=== PATIENT | male | born 1980 | race Caucasian/White ===

== ENCOUNTER 2022-12-18 16:23 | Inpatient (IN) | payer OTHER, SELFPAY ==
--- NOTE | ~2022-12-18 | CT_ITS ---
EXAMINATION: CT LE RT wo con DATE: 12/20/2022 14:57 INDICATION: Right lower leg cellulitis. TECHNIQUE: High resolution computed tomography (CT) of the right lower leg was performed without intr avenous contrast. Additional sagittal and coronal reconstructions were performed. Automated exposure control and iterative reconstruction technique were employed. The dose-length product was 1166.62 mGy -cm. COMPARISON: None FINDINGS: Bone alignment is normal. No fracture. 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 No cortical erosions or periosteal reaction to suggest osteom yelitis. No right knee or ankle joint effusions. There is diffuse subcutaneous edema seen on the ceph alad-most images at the distal right thigh becoming progressively more severe in the more distal lowe r leg and extending into the foot. There is a 6.4 x 3.1 x 1.7 cm lenticular blisterlike subepidermal fluid collection at the distal dorsum of the foot which remain superficial to the subcutaneous fat. N o other loculated fluid collections to suggest abscess. No evident soft tissue gas. IMPRESSION: 1. Extensive distal predominance subcutaneous edema throughout the right lower leg, foot and ankle wi th 6.4 x 3.1 x 1.7 cm superficial subdermal blisterlike fluid collection at the dorsum of the foot. N o other likely fluid collections to suggest abscess. Reviewed, dictated and finalized at location A. TER HELPER IMPRESSION: 1. Extensive distal predominance subcutaneous edema throughout the right lower leg, foot and ankle with 6.4 x 3.1 x 1.7 cm superficial subdermal blisterlike f luid collection at the dorsum of the foot. No other likely fluid collections to suggest abscess.
--- NOTE | ~2022-12-18 | US_ITS ---
Renal-Bladder ultrasound Clinical History: Acute renal insufficiency Technique: Real-time sonographic imaging of the kidneys and urinary bladder was performed. Findings: The right kidney measures 12.2 cm in length and the left kidney measures 13.3 cm. There is no hydronephrosis or renal calculus identified. Renal cortical echogenicity is within normal limits. No renal mass lesion is identified. The urinary bladder is moderately distended at the time of this exam. No intraluminal echoes are iden tified. No abnormal wall thickening is seen. Impression: Unremarkable ultrasound of the kidneys and urinary bladder. Reviewed, dictated and finalized at location M. STRIPPER Impression: Unremarkable ultrasound of the kidneys and urinary bladder.
--- NOTE | ~2022-12-18 | XR_ITS ---
Portable chest x-ray Comparison: 10/13/2018 Clinical History: Wheezing, cough Findings: Lungs are clear, without focal consolidation or pleural effusion. Cardiomediastinal silho uette is stable. Bones and soft tissues are unremarkable. Impression: Clear lungs. Reviewed, dictated and finalized at [facility]. MOLDER Impression: Clear lungs.
--- NOTE | ~2022-12-18 | US_ITS ---
EXAMINATION: US_VDOPREFRT_US DATE: 12/25/2022 16:23 INDICATION: Right lower limb edema. TECHNIQUE: Grayscale ultrasound images without and with compression and Doppler ultrasound images of the right lower extremity veins were obtained. COMPARISON: None. FINDINGS: The visualized portions of right common femoral vein, profunda (deep) femoral vein, femoral vein, pop liteal vein, peroneal veins, and posterior tibial veins are patent. Right greater saphenous vein xochitl ures 8 mm in the upper thigh and 5 mm in the lower thigh. There is reflux in right greater saphenous vein measuring 1.2 seconds in the lower thigh. The right lesser saphenous vein measures 7 mm in the upper calf with 0.7 seconds reflux. There is extensive subcutaneous edema. IMPRESSION: 1. No deep venous thrombosis. 2. Reflux in right greater and lesser saphenous veins. Reviewed, dictated and finalized at location A. STMENT ASSOCIATE
--- NOTE | ~2022-12-18 | US_ITS ---
EXAMINATION: US venous doppler LE RT DATE: 12/18/2022 21:35 INDICATION: Right lower limb pain, swelling and erythema. TECHNIQUE: Grayscale ultrasound images without and with compression and Doppler ultrasound images of the right lower extremity veins were obtained. COMPARISON: None. FINDINGS: The visualized portions of right common femoral vein, profunda (deep) femoral vein, femoral vein, pop liteal vein, peroneal trunk, posterior tibial veins, peroneal veins, gastrocnemius vein and greater s aphenous vein outflow are patent. IMPRESSION: 1. No deep venous thrombosis in the right lower limb. Reviewed, dictated and finalized at location A. SPRING REPAIRER HELPER
--- NOTE | ~2022-12-18 | US_ITS ---
EXAMINATION: US arterial ankle brachial ind DATE: 12/25/2022 16:23 INDICATION: Right lower limb edema. TECHNIQUE: Segmental pressures and plethysmographic and Doppler waveforms of the brachial and lower e xtremity arteries were obtained. COMPARISON: CT 12/20/22 FINDINGS: Right and left brachial artery pressures of 131 mm Hg and 147 mm Hg, respectively, are concordant (no rmal difference <= 30 mmHg). The right ankle-brachial index (AMANDA) could not be measured (normal >= 0.9-1.0). The right great toe-b rachial index (TBI) is 0.70 (normal >= 0.65). Arterial Doppler waveforms are not well detected at the ankle. The left AMANDA is 0.95. The left TBI is 0.95. Arterial Doppler waveforms are biphasic at the ankle. IMPRESSION: 1. Right AMANDA could not be measured due to the poor detectability of the arterial signals. 2. Normal right TBI. 3. Borderline decreased left AMANDA and normal left TBI. Reviewed, dictated and finalized at location A. VIORAL SCIENCES INSTRUCTOR IMPRESSION: 1. Right AMANDA could not be measured due to the poor detectability of the arteria l signals. 2. Normal right TBI. 3. Borderline decreased left AMANDA and normal left TBI.
[2022-12-18 16:25] VITALS: BP 96/56; PULSE 91; RESP 17; TEMP 36.2; O2SAT 99
--- NOTE | 2022-12-18 19:40 | PC.NURSE ---
Patient states he cannot sit in the chair anymore and will go to urgent care tomorrow.
--- NOTE | 2022-12-18 19:58 | ED.EXTPRO ---
HPI - Extremity Problem General Chief complaint: Extremity Problem,Nontraumatic Stated complaint: right leg swollen and hot Time Seen by Provider: 12/18/22 19:51 History of Present Illness HPI Narrative: This is a 42-year-old male with past medical history of diabetes who presents for chief complaint of right leg swelling and pain. This began 2 days ago. Reports pain is limited to the right lower leg. Endorses erythema and warmth. Reports an open wound to the martinez 2 weeks ago. Able to weight-bear but this causes significant pain. While lying down he states the pain is a 5 out of 10. Reports the area is very tender to touch. Reports low-grade fevers at 99F. States he has been out of his glimepiride for about a week. Last blood glucose check was today around noon and recorded at 250. Denies chills, nausea, vomiting, Chest pain, shortness of breath, syncope, weakness. Related Data Home Medications Medication Instructions Recorded Confirmed glimepiride 2 mg tablet (Amaryl) mg 09/23/19 metformin 500 mg tablet mg 09/23/19 Allergies Allergy/AdvReac Type Severity Reaction Status Date / Time aspirin Allergy Unknown Verified 10/13/18 02:47 Review of Systems Review of Systems: CONSTITUTIONAL: Denies fever, chills, or sweats. EYES: Denies visual changes, redness, or discharge. ENT: Denies rhinorrhea, congestion, sore throat, or otalgia. CARDIOVASCULAR: Denies chest pain, palpitations, or edema. RESPIRATORY: Denies cough or dyspnea. GASTROINTESTINAL: Denies abdominal pain, nausea, vomiting, or diarrhea. GENITOURINARY: Denies dysuria or hematuria. SKIN: Endorses erythema and warmth of the right lower leg. Reports lesions to the right lower leg. Denies rash or itching. MUSCULOSKELETAL: Endorses right calf pain. Denies back pain, joint pain, or myalgia. NEUROLOGIC: Denies headache, numbness, dizziness, or weakness. PSYCHIATRIC: Denies anxiety or depression. Exam Narrative: GENERAL: Well-appearing, well-nourished, and in no acute distress. HEAD: Normocephalic, atraumatic. EYES: PERRLA and EOMI. ENT: Nares clear, no rhinorrhea or epistaxis. Mucous membranes moist. Oropharynx without tonsillar hypertrophy exudate or other lesions. NECK: Supple. No adenopathy or masses. CHEST: No respiratory distress. Scattered wheezes are present. No rales or rhonchi HEART: Regular rate and rhythm. No murmur heard. Normal peripheral pulses. ABDOMEN: Soft, nontender, nondistended, normal active bowel sounds. EXTREMITIES: Normal range of motion. Right lower leg 1+ edema up to the level of the knee. 2+pulses bilaterally SKIN: Erythematous and warm right lower leg. 1 closed wound is noted to the right anterior martinez. Two open wounds noted to the lateral and posterior calf. The first is 1 cm in diameter. The second is linear and 3 cm in length with surrounding ecchymosis. Wounds are weeping. another area of ecchymosis is noted to the dorsum of the right foot. NEURO: Alert and oriented x3. No focal deficits. PSYCH: Normal mood and affect. Course Course Emergency Course: 2223: Spoke to Dr. Calix (hospitalist) and she agrees to admit the patient to [facility]. Vital Signs Vital signs: Vital Signs Temperature 97.2 F L 12/18/22 16:25 Pulse Rate 91 12/18/22 16:25 Respiratory Rate 17 12/18/22 16:25 Blood Pressure 96/56 L 12/18/22 16:25 Pulse Oximetry 99 12/18/22 16:25 Temperature 97.2 F L 12/18/22 16:25 Pulse Rate 91 12/18/22 20:30 Respiratory Rate 20 12/18/22 20:30 Blood Pressure 115/56 L 12/18/22 20:30 Pulse Oximetry 95 12/18/22 20:30 MDM - Extremity (Nontraumatic) MDM Narrative Medical decision making narrative: This is a 42-year-old male who comes in with chief complaint of right lower extremity pain, redness and swelling x2 days. Exam is remarkable for swollen right calf that is erythematous and warm to touch. Patient is a diabetic and has been out of his glimepiride for about a week. Obtained
--- NOTE | 2022-12-18 20:20 | PC.NURSE ---
Pt brought to ED by his s/o with c/o right lower leg swelling that started Sunday. There are multiple open spots that are draining clear fluid. 4+ pitting edema noted. He denies history of CHF. He denies chest pain or SOB. He does have a history of diabetes but has been out of his medications for 1 week+. States his sugars have been running 200-250s. Denies known fevers.
[2022-12-18 20:22] LABS: Basophils Absolute Auto 0.1 K/mm3 (0.0-0.1); Basophils Percent Auto 0.4 % (0.2-1.2); Eosinophils Absolute Auto 0.1 K/mm3 (0-0.3); Eosinophils Percent Auto 0.3 % (0-4.4); Hematocrit 40.8 % (42.0-52.0); Hemoglobin 14.2 g/dL (14.0-18.0); Immature Granulocyte Absolute 0.23 K/mm3 (0.00-0.031); Lymphocytes Absolute Auto 0.65 K/mm3 (0.9-3.2); Lymphocytes Percent Auto 2.8 % (18.3-44.2); Mean Corpuscular HGB Conc 34.8 g/dl (32-36); Mean Corpuscular Hemoglobin 32.7 pg (26-34); Mean Platelet Volume 11.2 fl (7.4-10.4); Monocytes Absolute Auto 0.7 K/mm3 (0.1-0.6); Monocytes Percent Auto 3.1 % (2.6-8.5); Neutrophils Absolute Auto 21.6 K/mm3 (1.3-6.7); Neutrophils Percent Auto 92.4 % (45.5-73.1); Platelet Count Result 181 k/mm3 (150-375); Red Blood Count 4.34 M/mm3 (4.6-6.20); Red Cell Distribution Width 13.5 % (11.5-14.5); White Blood Count 23.4 K/mm3 (4.5-10.0)
[2022-12-18 20:30] VITALS: BP 115/56; PULSE 91; RESP 20; O2SAT 95
[2022-12-18] MEDS: MORPHINE SULFATE (*CRX) 4 MG/ML INJ IV PUSH ×2 (20:44→22:49)
[2022-12-18] MEDS: SODIUM CHLORIDE 0.9% IV 500 ML 999 ML IV CONT (20:44)
[2022-12-18] MEDS: ONDANSETRON INJ 4 MG/2 ML VIAL IV PUSH (20:44)
[2022-12-18 20:45] LABS: Alanine Aminotransferase 49 U/L (6-50); Albumin Level 3.7 g/dL (3.5-5.1); Alkaline Phosphatase 171 U/L (38-126); Anion Gap 10 mmol/L (8-16); Aspartate Amino Transferase 48 U/L (17-59); Bilirubin,Total 1.4 mg/dL (0.2-1.3); Blood Urea Nitrogen 41 mg/dL (9-20); Calcium 8.3 mg/dL (8.4-10.2); Carbon Dioxide 24 mmol/L (22-30); Chloride 90 mmol/L (98-107); Estimated CRCL calculation 54 ml/min; Estimated Glomerular Filt Rate 28; Glucose 242 mg/dL (65-110); Potassium 4.1 mmol/L (3.4-5.0); Sodium 124 mmol/L (137-145)
[2022-12-18 20:59] LABS: Erythrocyte Sedimentation Rate 51 mm/hr (0-20)
[2022-12-18 21:35] LABS: Fractional Inspired Oxygen 21 %; HCO3 VBG 20.1 mEq/l (24.0-30.0); PO2 VBG 91.6 mmHg (35.0-45.0)
[2022-12-18 21:40] LABS: PCO2 VBG 26.9 mmHg (42.0-48.0); pH VBG 7.491 (7.300-7.400)
[2022-12-18] MEDS: metroNIDAZOLE 500 MG/ISO 100ML 500 MG/100 ML BAG 100 MG IVPB (21:40)
[2022-12-18] MEDS: SODIUM CHLORIDE 0.9% IV 1,000 ML 999 ML IV CONT (21:41)
[2022-12-18 21:50] LABS: Beta-Hydroxybutyrate/Acetoacetate 0.79 mmol/L (0.02-0.27)
[2022-12-18 22:03] LABS: Influenza A QL RT-PCR Negative (Negative); Influenza B QL RT-PCR Negative (Negative); RSV RNA, RT-PCR Negative (Negative); SARS-CoV-2 RNA PCR Negative
--- NOTE | 2022-12-18 22:20 | PM.IMHP ---
H&P: HPI History of Present Illness Date/Time: 12/18/22 22:20 Chief Complaint: Right lower extremity redness Narrative: This is a 42-year-old male with past medical history significant for type 2 diabetes mellitus, morbid obesity, tobacco dependence, patient presents to the emergency room due to right lower extremity redness, warmth, tenderness for the last 3 days or so, generalized malaise, chills, rigors, poor appetite. Patient denies any cough, sputum production, shortness of breath, no nausea, no vomiting, no diarrhea, no abdominal pain. Preliminary workup was significant for white count of 20,000, creatinine of 2.5, a venous Doppler showed no acute DVT of the right lower extremity, sodium 124, glucose 305., total bili was 1.4. Beta hydroxybutyrate was 0.79. Patient is been admitted for further evaluation management and treatment. Review of Systems Review of Systems: Right lower extremity swelling, tenderness, warmth, redness. Constitutional: Constitutional: Reports chills, Reports fatigue, Reports fever(s), Reports lethargy, Reports malaise, Reports night sweats, Reports poor appetite and Reports weakness Eyes: Eyes: Denies change in vision ENT: Denies dysphagia, Denies vertigo, Denies dizziness and Denies odynophagia Respiratory: Respiratory: Denies chest congestion, Denies excessive phlegm production, Denies pain on inspiration, Denies dyspnea and Denies dyspnea on exertion Gastrointestinal: Gastrointestinal: Denies abdominal pain, Denies dyspepsia, Denies heartburn, Denies diarrhea, Denies nausea and Denies vomiting Genitourinary: Genitourinary: Denies dysuria and Denies flank pain Musculoskeletal: Musculoskeletal: Reports other (Right lower extremity redness warmth tenderness swelling) Integumentary/Breasts: Skin/Breast: Reports swelling, Reports erythema, Reports rash, Reports skin pain and Reports skin swelling Comments: Right lower extremity Neurologic: Denies focal weakness and Denies Sensory deficit (Neuro) Psychiatric: Psychiatric: Reports no additional psychiatric complaints and Reports as per HPI Endocrine: Endocrine: Denies cold intolerance, Denies flushing, Denies heat intolerance, Denies polyphagia, Denies polydipsia and Denies palpitations Hematologic/Lymphatic: Hematologic/Lymphatic: Reports no additional hematologic/lymphatic complaints and Reports as per HPI Allergic/Immunologic: Allergic/Immunologic: Reports no additional allergic/immunologic complaints and Reports as per HPI [facility] Family History Family History (Updated 12/18/22 @ 23:43 by Raisa Aguilera RN) Mother Asthma Chronic obstructive pulmonary disease Diabetes mellitus Grandparent Colon cancer Social History Social History Smoking packs per day: 1 Smoking cigarettes per day: 20.0 Smoking status: Current every day smoker Tobacco type: cigarettes Alcohol intake: never Substance use: never Lack of Transportation: No Lack of Food: Never True Current Housing: I Have Housing Concerned About Future Housing: No Difficulty Paying Gas/Electric Bills: No Difficulty Paying for Meds: No Currently Unemployed: No Education: Associate Degree Difficulty w/ Childcare or Family Care: No Spiritual care concerns: No Meds Home Medications and Allergies Home Medications Medication Instructions Recorded Confirmed Type glimepiride 2 mg tablet (Amaryl) 8 mg PO BID 09/23/19 12/18/22 History Allergies Allergy/AdvReac Type Severity Reaction Status Date / Time aspirin Allergy Unknown Verified 10/13/18 02:47 Vital Signs Vital Signs - 24 hr 12/18/22 16:25 12/18/22 20:30 Temperature 97.2 F L Pulse Rate 91 91 Respiratory Rate 17 20 Blood Pressure 96/56 L 115/56 L Pulse Oximetry 99 95 Exam Narrative: Patient is laying in a stretcher Const: General: cooperative, comfortable, no acute distress, well developed, alert, awake, ill dee
[2022-12-18 22:36] LABS: Glucose Point of Care 236 mg/dl (65-105)
[2022-12-18 22:57] LABS: CRP > 45.0 mg/dL (<1.0)
[2022-12-18 22:58] VITALS: BP 126/52; PULSE 77; RESP 26; O2SAT 96
[2022-12-18 23:40] VITALS: BP 116/63; PULSE 95; RESP 28
--- NOTE | 2022-12-18 23:41 | ADMGEN ---
This patient, Jose Antonio Winter, was admitted to Medical Room 349-01. Patient/family oriented to hospital policies and general routines including ID bracelet, bed and alarms, visiting hours, pain management, procedures, bathroom and other care routines, personal items, smoking policy, room service/diet, and visiting hours. Information on how to activate the Rapid Response Team has been discussed. Patient/Family are encouraged to report perceived risks to care and to ask questions if they do not understand what they are told or what they should do.
[2022-12-18 23:42] VITALS: BMI 49.4
[2022-12-19] MEDS: metroNIDAZOLE 500 MG/ISO 100ML 500 MG/100 ML BAG 100 MG IVPB ×3 (05:24→21:04)
[2022-12-19] MEDS: SODIUM CHLORIDE 0.9% IV 1,000 ML 100 ML IV CONT ×3 (05:24→21:03)
[2022-12-19 05:53] LABS: Basophils Absolute Auto 0.1 K/mm3 (0.0-0.1); Basophils Percent Auto 0.5 % (0.2-1.2); Eosinophils Percent Auto 0.1 % (0-4.4); Hematocrit 37.1 % (42.0-52.0); Hemoglobin 12.8 g/dL (14.0-18.0); Immature Granulocyte Absolute 0.28 K/mm3 (0.00-0.031); Immature Granulocyte Percent A 1.2 % (0-0.5); Lymphocytes Percent Auto 2.6 % (18.3-44.2); Mean Corpuscular HGB Conc 34.5 g/dl (32-36); Mean Corpuscular Hemoglobin 32.7 pg (26-34); Mean Corpuscular Volume 94.9 fl (80-100); Mean Platelet Volume 10.9 fl (7.4-10.4); Monocytes Percent Auto 4.5 % (2.6-8.5); Neutrophils Absolute Auto 20.9 K/mm3 (1.3-6.7); Neutrophils Percent Auto 91.1 % (45.5-73.1); Platelet Count Result 164 k/mm3 (150-375); Red Blood Count 3.91 M/mm3 (4.6-6.20); Red Cell Distribution Width 13.5 % (11.5-14.5); White Blood Count 22.9 K/mm3 (4.5-10.0)
[2022-12-19 06:00] VITALS: BP 114/60; PULSE 95; RESP 24; TEMP 37.2
[2022-12-19 06:14] LABS: Anion Gap 10 mmol/L (8-16); Blood Urea Nitrogen 41 mg/dL (9-20); Calcium 7.7 mg/dL (8.4-10.2); Carbon Dioxide 21 mmol/L (22-30); Chloride 91 mmol/L (98-107); Estimated CRCL calculation 50 ml/min; Estimated Glomerular Filt Rate 26; Glucose 229 mg/dL (65-110); Potassium 3.7 mmol/L (3.4-5.0); Sodium 122 mmol/L (137-145)
[2022-12-19 08:39] LABS: Glucose Point of Care 220 mg/dl (65-105)
[2022-12-19] MEDS: INSULIN ASPART (*BKC) 100 UNITS/ML 8 UNITS SUB-Q ×3 (10:02→17:34)
[2022-12-19] MEDS: INSULIN ASPART (*BKC) 100 UNITS/ML SUB-Q ×2 (10:02→12:40)
[2022-12-19] MEDS: ENOXAPARIN 40 MG/0.4 ML SYRINGE SUB-Q (10:03)
[2022-12-19] MEDS: HYDROcodone/acetaminophen (*CRX) 7.5-325 MG TABLET 1 TAB PO ×2 (10:09→23:27)
[2022-12-19 11:45] LABS: Creatinine Urine 80.4 mg/dL; Total Protein Urine Random 66 mg/dL; Ur Ttl Prot Creatinine Ratio 0.82 mg/mg (0-0.20)
[2022-12-19 11:47] LABS: Creatinine Urine 79.6 mg/dL
[2022-12-19 11:51] LABS: Appearance Urine Slightly Cloudy (Clear); Bilirubin Urine 1+ (Negative); Blood Urine 2+ (Negative); Color Urine Yellow (Yellow); Glucose Urine UA Negative (Negative); Ketones Urine Negative (Negative); Leukocyte Esterase Ur Negative LEU/UL (Negative); Nitrate Urine Negative (Negative); Protein Urine 2+ mg/dL (Negative)
[2022-12-19 11:57] LABS: Sodium Urine Random 8 meq/L
[2022-12-19 12:04] LABS: Bacteria Urine Trace /hpf; Squamous Epithelial Cell Urine Rare /hpf (Few); WBC Urine 16-20 /hpf
[2022-12-19 12:10] LABS: Eosinophil Urine None Seen % (None Seen)
[2022-12-19 12:17] LABS: Urine Eos QC 2nd Tech Confirmed
[2022-12-19 12:21] LABS: Add Urine Microscopic? YES
[2022-12-19 12:29] LABS: Glucose Point of Care 276 mg/dl (65-105)
[2022-12-19 12:34] LABS: Sodium 126 mmol/L (137-145)
--- NOTE | 2022-12-19 12:49 | PM.CNNEP ---
Assessment and Plan Assessment and plan (1) GERTRUDIS (acute kidney injury): Code(s): N17.9 - Acute kidney failure, unspecified Status: Acute Assessment and Plan: no recent labs to compare to but assumption is that is GERTRUDIS suspect related to infection with possible progression to ATN evaluation to date: renal ultrasound without obstruction urine electrolytes prerenal urine eosinophils negative agree with trial of IVFs check CPK follow trend of repeat labs and UOP ? (2) Hyponatremia: Code(s): E87.1 - Hypo-osmolality and hyponatremia Status: Acute Assessment and Plan: suspect related to excessive free water intake and possible GERTRUDIS follow repeat sodium levels receiving IVFs given element of volume depletion by testing to date suspect sodium make improve as renal function does (3) Cellulitis of right lower extremity: Code(s): L03.115 - Cellulitis of right lower limb Status: Acute Assessment and Plan: as noted on presentation IV antibiotics follow culture data local wound care (4) T2DM (type 2 diabetes mellitus): Code(s): E11.9 - Type 2 diabetes mellitus without complications Status: Chronic Assessment and Plan: follow accuchecks glycemic control per hospitalists Will continue to follow. History of Present Illness Reason for Consult Consult date: 12/19/22 Reason for consult: acute renal failure and hyponatremia Chief Complaint Chief complaint: Cellulitis,GERTRUDIS,Hyponatremia History of Present Illness Narrative: The patient is a 42-year-old male with a past medical history as outlined below who presented to [facility] Emergency room due to complaints of right lower extremity pain. The patient is noted that over the past 3-4 days or so, he has had increased right lobe lower extremity redness, warmth, and tenderness to palpation. The symptoms have been associated with generalized malaise, chills, rigors, and poor appetite as well. He denied any cough, shortness of breath, nausea, vomiting, diarrhea, lightheadedness, or palpation. However, as his right lower extremity seem to be getting worse in general, he came to the ER for further assessment. Workup and evaluation in the emergency room demonstrated the patient be hemodynamically stable but in mild distress secondary to his right lower extremity pain. Routine blood tests were [place] [address], an elevated BUN and creatinine, a negative venous Doppler with regard to DVT, and hyponatremia with a sodium level of 124. It was felt that his right lower extremity had an infection in the form of cellulitis and appropriate blood cultures were obtained and he was started on broad-spectrum IV antibiotic therapy with subsequent admission to the hospital. Renal consultation was requested due to his presumed acute kidney injury/acute renal failure in association with his hyponatremia. From my discussion with the patient, he reports that he has never been told that he had any kidney issues or kidney problems and he is not aware of any issues or problems with hyponatremia either. On further questioning, he does admit that he drinks a significant amount of water, sometimes up to a gallon a day. since his admission, despite IV fluids and IV antibiotics, his renal function actually has worsened. He is still making urine E does not have any issues or problems with volume overload at this time and even on my visit, he continues to drink a significant amount of free water as well. Currently, at the time my visit, his major complaint is that of pain in his right lower extremity. Review of Systems Review of Systems: As per HPI. [facility] Past Medical History Medical History Morbid obesity with BMI of 45.0-49.9, adult T2DM (type 2 diabetes mellitus) Surgical History Surgical History (Reviewed 12/20/22
[2022-12-19 14:00] VITALS: BP 103/57; PULSE 94; RESP 20; TEMP 36.8; O2SAT 95
--- NOTE | 2022-12-19 15:07 | PM.IMPN ---
Progress Note: A&P Assessment and Plan (1) Cellulitis of right lower extremity: Code(s): L03.115 - Cellulitis of right lower limb Status: Acute Assessment and Plan: Patient with significant left lower extremity cellulitis. venous Doppler negative DVT continue empiric antibiotics with vancomycin cefepime, Flagyl blood cultures are pending supportive care. Elevate the extremity. analgesics as needed WBC to mild improvement today. Continue to monitor continue to CRP. >45 today (2) Acute hyponatremia: Code(s): E87.1 - Hypo-osmolality and hyponatremia Status: Acute Assessment and Plan: sodium 124 declined to 122 today. Corrected for hyperglycemia, sodium is 124 likely due to excess free water intake as patient reports drinking >1 gal of water per day patient is receiving fluids at this type given acute kidney injury, see below improvement in sodium to 126 this afternoon urine sodium is 8 and urine creatinine is 80.4 monitor levels closely to ensure appropriate rate of correction appreciate nephrology recommendations (3) GERTRUDIS (acute kidney injury): Code(s): N17.9 - Acute kidney failure, unspecified Status: Acute Assessment and Plan: last labs available for review from 2018 with no evidence of kidney disease. Creatinine 2.5 on admission with increased to 2.7 today appreciate nephrology recommendations renal ultrasound unremarkable no evidence of urinary retention. Urine output is adequate. Urinary bladder noted to be moderately distended on renal ultrasound continue to monitor intake and output UA with 2+ protein urine eosinophils negative (4) T2DM (type 2 diabetes mellitus): Code(s): E11.9 - Type 2 diabetes mellitus without complications Status: Acute Assessment and Plan: poorly controlled. Blood sugars have been running high since patient ran out of his glimepiride over 1 week ago. Blood sugars in the 230s-270s today continue Accu-Cheks, sliding scale insulin, and hypoglycemia protocol continue Lantus 24 units q.h.s. NovoLog 8 units scheduled with meals tight glycemic control is important for wound healing monitor glucose trends and adjust insulin regimen as needed Subjective Date/time seen: 12/19/22 15:07 Interval history: date of service: 12/19/2022 Jose Antonio Winter is a 42-year-old male with history of type 2 diabetes mellitus who is seen in follow-up for an cellulitis of the right lower extremity. The patient states that he feels terrible today. He is experiencing shooting pains up his left leg that he rates as 8/10. States the pain started 3 days ago. He endorses significant lower extremity swelling and redness. He is not able to bear weight. He denies any episodes of fever or chills. Denies nausea or vomiting. No shortness of breath, cough, chest pain, abdominal pain. Denies dysuria, hematuria, polyuria. He does admit to increased thirst in excess water intake, estimating that he is drinking more than a gallon per day. He complains of a significant dry mouth. He denies dysphagia. He states he developed of a blister on his foot yesterday while sitting in a wheelchair in the ER and also believes that he has a cut on the back of his leg from the wheelchair. he is noted to have noisy breathing during the encounter. He denies any history of sleep apnea but states that he has a deviated septum and this is his typical breathing. Denies rhinorrhea or sinus congestion. Review of Systems Review of Systems: All systems reviewed & are unremarkable except as noted in HPI and below Exam Narrative: General: Obese, well-appearing 42-year-old male, sitting up in bed, appears uncomfortable, NARD Neuro: awake, alert and oriented x4, speech clear, no focal neuro deficits noted HEENMT: normocephalic, atraumatic, EOMI, sclerae anicteric Neck: Large circumference Respiratory
[2022-12-19 17:22] LABS: Glucose Point of Care 195 mg/dl (65-105)
[2022-12-19 20:47] LABS: Glucose Point of Care 183 mg/dl (65-105)
[2022-12-19] MEDS: INSULIN GLARGINE (*BKC) 100 UNITS/ML 24 UNITS SUB-Q (21:07)
[2022-12-19 21:53] VITALS: BP 118/70; PULSE 77; RESP 26; TEMP 36.9
[2022-12-20 05:25] LABS: Basophils Absolute Auto 0.1 K/mm3 (0.0-0.1); Basophils Percent Auto 0.3 % (0.2-1.2); Eosinophils Absolute Auto 0.1 K/mm3 (0-0.3); Eosinophils Percent Auto 0.3 % (0-4.4); Hematocrit 38.2 % (42.0-52.0); Hemoglobin 12.9 g/dL (14.0-18.0); Immature Granulocyte Absolute 1.08 K/mm3 (0.00-0.031); Immature Granulocyte Percent A 4.7 % (0-0.5); Lymphocytes Absolute Auto 1.22 K/mm3 (0.9-3.2); Lymphocytes Percent Auto 5.3 % (18.3-44.2); Mean Corpuscular HGB Conc 33.8 g/dl (32-36); Mean Corpuscular Hemoglobin 32.3 pg (26-34); Mean Corpuscular Volume 95.5 fl (80-100); Mean Platelet Volume 10.4 fl (7.4-10.4); Monocytes Absolute Auto 1.3 K/mm3 (0.1-0.6); Monocytes Percent Auto 5.8 % (2.6-8.5); Neutrophils Absolute Auto 19.2 K/mm3 (1.3-6.7); Neutrophils Percent Auto 83.6 % (45.5-73.1); Platelet Count Result 226 k/mm3 (150-375); Red Cell Distribution Width 13.6 % (11.5-14.5)
[2022-12-20] MEDS: metroNIDAZOLE 500 MG/ISO 100ML 500 MG/100 ML BAG 100 MG IVPB ×3 (05:42→21:57)
[2022-12-20 05:50] LABS: Alanine Aminotransferase 60 U/L (6-50); Alkaline Phosphatase 249 U/L (38-126); Anion Gap 8 mmol/L (8-16); Aspartate Amino Transferase 67 U/L (17-59); Bilirubin,Total 1.6 mg/dL (0.2-1.3); Blood Urea Nitrogen 43 mg/dL (9-20); Calcium 7.8 mg/dL (8.4-10.2); Carbon Dioxide 22 mmol/L (22-30); Chloride 97 mmol/L (98-107); Estimated CRCL calculation 64 ml/min; Estimated Glomerular Filt Rate 35; Glucose 209 mg/dL (65-110); Potassium 3.7 mmol/L (3.4-5.0); Sodium 127 mmol/L (137-145)
[2022-12-20 06:00] VITALS: BP 124/69; PULSE 77; RESP 28; TEMP 36.9
[2022-12-20 06:09] LABS: CRP > 45.0 mg/dL (<1.0)
[2022-12-20 08:28] LABS: Glucose Point of Care 192 mg/dl (65-105)
[2022-12-20] MEDS: INSULIN ASPART (*BKC) 100 UNITS/ML 8 UNITS SUB-Q (09:46)
[2022-12-20] MEDS: ENOXAPARIN 40 MG/0.4 ML SYRINGE SUB-Q (09:47)
[2022-12-20] MEDS: HYDROcodone/acetaminophen (*CRX) 7.5-325 MG TABLET 1 TAB PO ×2 (09:52→17:53)
--- NOTE | 2022-12-20 10:08 | P.PNIM_ITS ---
Progress Note: A&P Assessment and Plan (1) Cellulitis of right lower extremity: Code(s): L03.115 - Cellulitis of right lower limb Status: Acute Assessment and Plan: Patient with significant left lower extremity cellulitis. * venous Doppler negative DVT * continue empiric antibiotics with vancomycin cefepime, Flagyl - increase cefepime to 2 grams Q12 hours. * procalcitonin 14 * blood cultures are pending * supportive care. Elevate the extremity. * analgesics as needed * WBC 24 to 23 today. CRP continues to be >45 and patient reports increasing pain and swelling. * Consult General surgery for further evaluation. Discussed case and recommended obtaining CT lower extremity rule out underlying abscess. * Trend CBC and CMP (2) Acute hyponatremia: Code(s): E87.1 - Hypo-osmolality and hyponatremia Status: Acute Assessment and Plan: sodium 124 declined to 122 today. Corrected for hyperglycemia, sodium is 124 * likely due to excess free water intake as patient reports drinking >1 gal of water per day * patient is receiving fluids at this type given acute kidney injury, see below * improvement in sodium to 126 this afternoon * urine sodium is 8 and urine creatinine is 80.4, FENa 0.2% suggesting pre- renal. * monitor levels closely to ensure appropriate rate of correction * appreciate nephrology recommendations (3) GERTRUDIS (acute kidney injury): Code(s): N17.9 - Acute kidney failure, unspecified Status: Acute Assessment and Plan: last labs available for review from 2018 with no evidence of kidney disease. Creatinine 2.5 on admission to 2.7 to 2.1 today * appreciate nephrology recommendations * renal ultrasound unremarkable * no evidence of urinary retention. Urine output is adequate. Urinary bladder noted to be moderately distended on renal ultrasound * continue to monitor intake and output * UA with 2+ protein * urine eosinophils negative * urine sodium is 8 and urine creatinine is 80.4, FENa 0.2% suggesting pre- renal.? (4) T2DM (type 2 diabetes mellitus): Code(s): E11.9 - Type 2 diabetes mellitus without complications Status: Chronic Assessment and Plan: poorly controlled. Blood sugars have been running high since patient ran out of his glimepiride over 1 week ago. Blood sugars in the 230s-270s today * continue Accu-Cheks, sliding scale insulin, and hypoglycemia protocol * continue Lantus 24 units q.h.s. * NovoLog 8 units scheduled with meals when eating. * tight glycemic control is important for wound healing * monitor glucose trends and adjust insulin regimen as needed Plan CODE STATUS: FULL CODE Disposition: Home when medically stable. Time Spent With Patient Time with patient: Greater than 35 minutes Subjective Date/time seen: 12/20/22 10:08 Interval history: Patient is a 42-year-old male with uncontrolled type 2 diabetes mellitus who is seen in follow-up for an cellulitis of the right lower extremity. He was admitted for further management of RLE cellulitis. He reports increasing pain, redness, swelling and new blister-like formation near the toes on his right foot. He reports the blister developed in the ED and attributes it to his legs dangling while sitting in the wheelchair. He thinks the pain is getting worse. Nursing also notes the patient is lethargic and snores quite loudly. He denies known trauma to his right leg prior to admission. Review of Systems Review of Systems: All systems reviewed & are unremarkable except as noted
--- NOTE | 2022-12-20 10:08 | PM.IMPN ---
Progress Note: A&P Assessment and Plan (1) Cellulitis of right lower extremity: Code(s): L03.115 - Cellulitis of right lower limb Status: Acute Assessment and Plan: Patient with significant left lower extremity cellulitis. venous Doppler negative DVT continue empiric antibiotics with vancomycin cefepime, Flagyl - increase cefepime to 2 grams Q12 hours. procalcitonin 14 blood cultures are pending supportive care. Elevate the extremity. analgesics as needed WBC 24 to 23 today. CRP continues to be >45 and patient reports increasing pain and swelling. Consult General surgery for further evaluation. Discussed case and recommended obtaining CT lower extremity rule out underlying abscess. Trend CBC and CMP (2) Acute hyponatremia: Code(s): E87.1 - Hypo-osmolality and hyponatremia Status: Acute Assessment and Plan: sodium 124 declined to 122 today. Corrected for hyperglycemia, sodium is 124 likely due to excess free water intake as patient reports drinking >1 gal of water per day patient is receiving fluids at this type given acute kidney injury, see below improvement in sodium to 126 this afternoon urine sodium is 8 and urine creatinine is 80.4, FENa 0.2% suggesting pre-renal. monitor levels closely to ensure appropriate rate of correction appreciate nephrology recommendations (3) GERTRUDIS (acute kidney injury): Code(s): N17.9 - Acute kidney failure, unspecified Status: Acute Assessment and Plan: last labs available for review from 2018 with no evidence of kidney disease. Creatinine 2.5 on admission to 2.7 to 2.1 today appreciate nephrology recommendations renal ultrasound unremarkable no evidence of urinary retention. Urine output is adequate. Urinary bladder noted to be moderately distended on renal ultrasound continue to monitor intake and output UA with 2+ protein urine eosinophils negative urine sodium is 8 and urine creatinine is 80.4, FENa 0.2% suggesting pre-renal.? (4) T2DM (type 2 diabetes mellitus): Code(s): E11.9 - Type 2 diabetes mellitus without complications Status: Chronic Assessment and Plan: poorly controlled. Blood sugars have been running high since patient ran out of his glimepiride over 1 week ago. Blood sugars in the 230s-270s today continue Accu-Cheks, sliding scale insulin, and hypoglycemia protocol continue Lantus 24 units q.h.s. NovoLog 8 units scheduled with meals when eating. tight glycemic control is important for wound healing monitor glucose trends and adjust insulin regimen as needed Plan CODE STATUS: FULL CODE Disposition: Home when medically stable. Time Spent With Patient Time with patient: Greater than 35 minutes Subjective Date/time seen: 12/20/22 10:08 Interval history: Patient is a 42-year-old male with uncontrolled type 2 diabetes mellitus who is seen in follow-up for an cellulitis of the right lower extremity. He was admitted for further management of RLE cellulitis. He reports increasing pain, redness, swelling and new blister-like formation near the toes on his right foot. He reports the blister developed in the ED and attributes it to his legs dangling while sitting in the wheelchair. He thinks the pain is getting worse. Nursing also notes the patient is lethargic and snores quite loudly. He denies known trauma to his right leg prior to admission. Review of Systems Review of Systems: All systems reviewed & are unremarkable except as noted in HPI and below Exam Narrative: General: Obese, 42-year-old male, lying in bed, grimacing with minimal leg movement. Neuro: lethargic, arouses to voice, alert and oriented x4, speech clear, no focal neuro deficits noted HEENT: normocephalic, atraumatic, EOMI, sclerae anicteric, PERRLA, very [place]. Neck: Large circumference Respiratory: noisy upper airway sounds, lungs are clear to auscultation tavares
[2022-12-20 11:04] LABS: Vancomycin Trough 11.3 ug/mL (10.0-20.0)
[2022-12-20 11:48] LABS: Lactic Acid Reflex 1.1 mmol/L (0.7-2.0)
--- NOTE | 2022-12-20 12:30 | PM.CNGS ---
Assessment and Plan Assessment and plan (1) Cellulitis of right lower extremity: Code(s): L03.115 - Cellulitis of right lower limb Status: Acute Assessment and Plan: The patient has right lower extremity cellulitis currently being treated with broad-spectrum IV antibiotics. He has not had any significant improvement in his leukocytosis. Clinically, he has not had much improvement in pain, swelling, or redness. We would recommend getting a CT scan of the right lower extremity to evaluate for a deeper abscess. Discussed this with the Hospitalist, who plans to order without contrast due to his GERTRUDIS. He has also developed a large bulla on the dorsal aspect of the right foot. This could be related to his edema or could be an abscess. He does not recall any trauma to this area. We may consider doing a bedside incision and drainage and could obtain a culture if the fluid appears purulent. If this appears to be serous fluid consistent with a blister, then we could treat with local wound care. Continue with broad-spectrum IV antibiotics. Will await CT results. (2) Sepsis: Code(s): A41.9 - Sepsis, unspecified organism Status: Acute Assessment and Plan: Criteria met on admission with leukocytosis, hypotension, and acute renal failure in the setting of right lower extremity cellulitis. See plan above. Continue broad spectrum IV antibiotics. Blood cx NGTD. WBC count still around 23,000. Lactic acid normal today. (3) T2DM (type 2 diabetes mellitus): Code(s): E11.9 - Type 2 diabetes mellitus without complications Status: Chronic (4) GERTRUDIS (acute kidney injury): Code(s): N17.9 - Acute kidney failure, unspecified Status: Acute Assessment and Plan: Creatinine 2.1 and Nephrology following. Likely related to his acute infection. (5) Acute hyponatremia: Code(s): E87.1 - Hypo-osmolality and hyponatremia Status: Acute (6) Morbid obesity with BMI of 45.0-49.9, adult: Code(s): E66.01 - Morbid (severe) obesity due to excess calories; Z68.42 - Body mass index [BMI] 45.0-49.9, adult Status: Chronic (7) Tobacco dependence: Code(s): F17.200 - Nicotine dependence, unspecified, uncomplicated Status: Acute Assessment and Plan: Strongly encouraged cessation. Plan I have discussed the patient's case and plan of care with Dr. Mccarty. Thank you for allowing us to see the patient in consultation and we will continue to follow along with you. History of Present Illness Consult details Consult date: 12/20/22 Reason for consult: other (Right lower extremity cellulitis) Requesting physician: Kathy Finn APRN Narrative: This is a 42-year-old man with type 2 diabetes mellitus, who we have been asked to see for right lower extremity cellulitis. The patient reports having a subjective fever on Sunday, 5 days ago. He he took a small nap and when he woke up noticed right lower extremity pain. He looked at his leg and noticed that there was a small scab on his anterior lower leg with minimal redness and swelling around that area. He states he did not notice anything prior to Sunday, although in the ER documentation it mentions that he may have noted an open wound on the anterior right lower leg about 2 weeks ago. He denies remembering any trauma or injury to this leg. His symptoms progressively worsened over the weekend with more swelling and redness extending over his right lower extremity. He reports having to adjust the way he was walking due to the pain. Due to his progressive symptoms, he presented to the ER for further evaluation. Labs showed white blood cell count of 23,400, sodium 124, BUN 41, creatinine 2.5, glucose 242, total bilirubin 1.4, alk-phos 171, CRP greater than 45. He was admitted to the hospitalist service and has been started on broad-spectrum IV antibiotics he is currently on IV cefepime, Flagyl, and vancomycin. Blood cultures were drawn and rocío
[2022-12-20 12:43] LABS: Glucose Point of Care 265 mg/dl (65-105)
--- NOTE | 2022-12-20 12:54 | P.PNNP_ITS ---
Progress Note: A&P Assessment and Plan (1) GERTRUDIS (acute kidney injury): Code(s): N17.9 - Acute kidney failure, unspecified Status: Acute Assessment and Plan: * improvement noted * no recent labs to compare to but assumption is that is GERTRUDIS * suspect related to infection with possible progression to ATN * evaluation to date: * renal ultrasound without obstruction * urine electrolytes prerenal * urine eosinophils negative * CPK low * agree with IVFs for now * follow trend of repeat labs and UOP ? (2) Hyponatremia: Code(s): E87.1 - Hypo-osmolality and hyponatremia Status: Acute Assessment and Plan: * suspect related to excessive free water intake and possible GERTRUDIS * follow repeat sodium levels * receiving IVFs given element of volume depletion by testing to date * suspect sodium make improve as renal function does (3) Cellulitis of right lower extremity: Code(s): L03.115 - Cellulitis of right lower limb Status: Acute Assessment and Plan: * as noted on presentation * IV antibiotics * follow culture data * local wound care * Surgery following -- recent CT of RLE ordered (4) T2DM (type 2 diabetes mellitus): Code(s): E11.9 - Type 2 diabetes mellitus without complications Status: Chronic Assessment and Plan: * follow accuchecks * glycemic control per hospitalists Will continue to follow. Subjective Date/time seen: 12/20/22 12:54 Continues to make good urine output with mild improvement in renal function as well as sodium level; seen by Surgery with recommendations noted; pain appears to be his main complaint at this time. Exam Narrative: General: Large male with mild distress with any palpation/movement of RLE Heart: normal S1 and S2; no rub Lungs: clear anteriorly, decreased at bases Abdomen: soft, nontender, nondistended, positive bowel sounds Extremities: no cyanosis or clubbing Skin: RLE with 3 - 4+ edema associated with erythema/warmnt and tenderness to touch Objective Data Vital Signs Vital Signs: Vital Signs Temp Pulse Resp BP Pulse Ox O2 Del Method 12/20/22 12:00 98.9 F 90 18 146/70 H 95 12/20/22 10:00 Room Air 12/20/22 06:00 98.4 F 77 28 H 124/69 12/19/22 20:00 Room Air 12/19/22 21:53 98.4 F 77 26 H 118/70 Intake/Output Intake/Output: Intake & Output 12/17/22 12/18/22 12/19/22 12/20/22 23:59 23:59 23:59 23:59 Intake Total 650 3880 490 Output Total 3900 1700 Balance 650 20 1210 Meds/Results Medications: Active Medications Generic Name Dose Route Start Last Admin Trade Name Freq PRN Reason Stop Dose Admin Acetaminophen 650 mg 12/19/22 10:07 Acetaminophen 325 Mg Tablet PO Q6H PRN Pain 1-3 Hydrocodone Bitart/Acetaminophen 1 tab 12/19/22 10:11 12/20/22 09:52 Hydrocodone/Acetaminophen (*Crx) 7.5-325 Mg Tablet PO 1 tab Q6H PRN Administration Pain Rated 4-6 Dextrose 12.5 gm 12/18/22 22:22 Dextrose 50% 25 Gm/50 Ml Syringe IV PUSH PRN PRN Hypoglycemia Protocol Enoxaparin Sodium 40 mg 12/19/22 09:00 02
--- NOTE | 2022-12-20 12:54 | PM.PNNEP ---
Progress Note: A&P Assessment and Plan (1) GERTRUDIS (acute kidney injury): Code(s): N17.9 - Acute kidney failure, unspecified Status: Acute Assessment and Plan: improvement noted no recent labs to compare to but assumption is that is GERTRUDIS suspect related to infection with possible progression to ATN evaluation to date: renal ultrasound without obstruction urine electrolytes prerenal urine eosinophils negative CPK low agree with IVFs for now follow trend of repeat labs and UOP ? (2) Hyponatremia: Code(s): E87.1 - Hypo-osmolality and hyponatremia Status: Acute Assessment and Plan: suspect related to excessive free water intake and possible GERTRUDIS follow repeat sodium levels receiving IVFs given element of volume depletion by testing to date suspect sodium make improve as renal function does (3) Cellulitis of right lower extremity: Code(s): L03.115 - Cellulitis of right lower limb Status: Acute Assessment and Plan: as noted on presentation IV antibiotics follow culture data local wound care Surgery following -- recent CT of RLE ordered (4) T2DM (type 2 diabetes mellitus): Code(s): E11.9 - Type 2 diabetes mellitus without complications Status: Chronic Assessment and Plan: follow accuchecks glycemic control per hospitalists Will continue to follow. Subjective Date/time seen: 12/20/22 12:54 Continues to make good urine output with mild improvement in renal function as well as sodium level; seen by Surgery with recommendations noted; pain appears to be his main complaint at this time. Exam Narrative: General: Large male with mild distress with any palpation/movement of RLE Heart: normal S1 and S2; no rub Lungs: clear anteriorly, decreased at bases Abdomen: soft, nontender, nondistended, positive bowel sounds Extremities: no cyanosis or clubbing Skin: RLE with 3 - 4+ edema associated with erythema/warmnt and tenderness to touch Objective Data Vital Signs Vital Signs: Vital Signs Temp Pulse Resp BP Pulse Ox O2 Del Method 12/20/22 12:00 98.9 F 90 18 146/70 H 95 12/20/22 10:00 Room Air 12/20/22 06:00 98.4 F 77 28 H 124/69 12/19/22 20:00 Room Air 12/19/22 21:53 98.4 F 77 26 H 118/70 Intake/Output Intake/Output: Intake & Output 02/0512/18/22 12/19/22 12/20/22 23:59 23:59 23:59 23:59 Intake Total 650 3880 490 Output Total 3900 1700 Balance 650 20 -8430 Meds/Results Medications: Active Medications Generic Name Dose Route Start Last Admin Trade Name Freq PRN Reason Stop Dose Admin Acetaminophen 650 mg 12/19/22 10:07 Acetaminophen 325 Mg Tablet PO Q6H PRN Pain 1-3 Hydrocodone Bitart/Acetaminophen 1 tab 12/19/22 10:11 12/20/22 09:52 Hydrocodone/Acetaminophen (*Crx) 7.5-325 Mg Tablet PO 1 tab Q6H PRN Administration Pain Rated 4-6 Dextrose 12.5 gm 12/18/22 22:22 Dextrose 50% 25 Gm/50 Ml Syringe IV PUSH PRN PRN Hypoglycemia Protocol Enoxaparin Sodium 40 mg 12/19/22 09:00 12/20/22 09:47 Enoxaparin 40 Mg/0.4 Ml Syringe SUB-Q 40 mg DAILY JOJO Administration Glucagon 1 mg 12/18/22 22:22 Glucagon For Inj 1 Mg Vial IM PRN PRN Hypoglycemia Protocol Glucose 15 gm 12/18/22 22:22 Glucose Oral Gel 15 Gm Of Glucse In 37.5 Gm Tube PO PRN PRN Hypoglycemia Protocol Metronidazole 500 mg in 100 mls @ 100 mls/hr 12/19/22 06:00 12/20/22 14:18 Flagyl 500 Mg/Iso Soln 100 Ml IVPB Infused Q8H JOJO Infusion Dextrose 1,000 mls @ 100 mls/hr 12/18/22 22:22 Dextrose 5% 1,000 Ml IVPB PRN PRN Hypoglycemia Protocol Sodium Chloride 1,000 mls @ 100 mls/hr 12/19/22 03:50 12/19/22 21:03 Normal Saline Iv IV CONT 100 mls/hr .Q10H JOJO Administration Cefepime HCl 2 gm in 50 mls @ 100 mls/hr 12/20/22 09:40 12/20/22 11:18 Maxi
[2022-12-20 12:55] LABS: Procalcitonin 14.3 ng/mL
[2022-12-20] MEDS: INSULIN ASPART (*BKC) 100 UNITS/ML SUB-Q (13:06)
[2022-12-20 14:00] VITALS: BP 146/70; PULSE 90; RESP 18; TEMP 37.2; O2SAT 95
[2022-12-20 17:19] LABS: Glucose Point of Care 197 mg/dl (65-105)
[2022-12-20] MEDS: SODIUM CHLORIDE 0.9% IV 1,000 ML 100 ML IV CONT (17:53)
[2022-12-20 20:00] VITALS: PULSE 76; RESP 28; O2SAT 95
[2022-12-20 20:51] LABS: Glucose Point of Care 226 mg/dl (65-105)
[2022-12-20] MEDS: INSULIN GLARGINE (*BKC) 100 UNITS/ML 24 UNITS SUB-Q (20:51)
[2022-12-20 21:15] LABS: Creatine Kinase 31 U/L (55-170)
[2022-12-20 21:40] VITALS: BP 122/68; PULSE 76; RESP 28; TEMP 36.7
--- NOTE | 2022-12-20 22:20 | PCRCNOTE ---
Patient refused apnea link stating he had already had one done years ago. He said nobody told him he needed a cpap and one wasn't provided, so he does not have sleep apnea. Pt repeatedly said he has a deviated septum and that is the issue.
[2022-12-21 05:38] LABS: Hematocrit 38.5 % (42.0-52.0); Hemoglobin 12.9 g/dL (14.0-18.0); Mean Corpuscular HGB Conc 33.5 g/dl (32-36); Mean Corpuscular Hemoglobin 32.5 pg (26-34); Mean Platelet Volume 10.2 fl (7.4-10.4); Platelet Count Result 255 k/mm3 (150-375); Red Blood Count 3.97 M/mm3 (4.6-6.20); Red Cell Distribution Width 13.9 % (11.5-14.5); White Blood Count 23.4 K/mm3 (4.5-10.0)
[2022-12-21 05:52] LABS: Anisocytosis 1+ (NORMAL); Band Neutrophils Percent 4 % (0-6); Lymphocytes Absolute Manual 1.87 K/mm3 (1.1-4.5); Monocytes Absolute Manual 1.63 K/mm3 (0.1-0.90); Monocytes Percent Manual 7 % (3-9); Neutrophils Absolute Manual 19.89 K/mm3 (1.3-6.7); Neutrophils Percent Manual 81 % (46-73); Platelet Estimate Adequate (Adequate); Schistocytes None Seen (NORMAL); Total Cells Counted 100
[2022-12-21] MEDS: metroNIDAZOLE 500 MG/ISO 100ML 500 MG/100 ML BAG 100 MG IVPB ×3 (05:54→21:54)
[2022-12-21] MEDS: SODIUM CHLORIDE 0.9% IV 1,000 ML 100 ML IV CONT ×2 (05:54→20:47)
[2022-12-21] MEDS: HYDROcodone/acetaminophen (*CRX) 7.5-325 MG TABLET 1 TAB PO ×2 (05:55→20:46)
[2022-12-21 05:56] LABS: Complement C3 81 mg/dL (88-165)
[2022-12-21 06:00] VITALS: BP 120/64; PULSE 77; RESP 24; TEMP 36.8; O2SAT 98
[2022-12-21 08:13] LABS: Glucose Point of Care 210 mg/dl (65-105)
[2022-12-21 08:42] LABS: Alanine Aminotransferase 57 U/L (6-50); Albumin Level 2.9 g/dL (3.5-5.1); Alkaline Phosphatase 258 U/L (38-126); Anion Gap 5 mmol/L (8-16); Aspartate Amino Transferase 64 U/L (17-59); Bilirubin,Total 1.1 mg/dL (0.2-1.3); Blood Urea Nitrogen 39 mg/dL (9-20); Carbon Dioxide 24 mmol/L (22-30); Chloride 97 mmol/L (98-107); Estimated CRCL calculation 83 ml/min; Estimated Glomerular Filt Rate 47; Glucose 229 mg/dL (65-110); Potassium 3.6 mmol/L (3.4-5.0); Sodium 126 mmol/L (137-145)
--- NOTE | 2022-12-21 09:56 | P.CDI_ITS ---
CDI Query Clarification Request cellulitis related to type 2 diabetes mellitus <Kathy Finn, MOLDING MACHINE TENDER - Last Filed: 12/21/22 15:21> Clarified Diagnosis Clarified Diagnosis: Please clarify if there is a cause and effect relationship between cellulitis and Type II Diabetes Mellitus. * Cellulitis related to Type II Diabetes Mellitus. * Cellulitis not related to Type II Diabetes Mellitus. * Unknown <Cee Barajas RN - Last Filed: 12/21/22 10:02>
--- NOTE | 2022-12-21 09:56 | WPDCDIQUERY2 ---
CDI Query Clarification Request cellulitis related to type 2 diabetes mellitus <Kathy Finn, AVIONICS ELECTRONICS TECHNICIAN - Last Filed: 12/21/22 15:21> Clarified Diagnosis Clarified Diagnosis: Please clarify if there is a cause and effect relationship between cellulitis and Type II Diabetes Mellitus. Cellulitis related to Type II Diabetes Mellitus. Cellulitis not related to Type II Diabetes Mellitus. Unknown <Cee Barajas RN - Last Filed: 12/21/22 10:02>
--- NOTE | 2022-12-21 10:39 | P.PNIM_ITS ---
Progress Note: A&P Assessment and Plan (1) Cellulitis of right lower extremity: Code(s): L03.115 - Cellulitis of right lower limb Status: Acute Assessment and Plan: Patient with significant left lower extremity cellulitis. * venous Doppler negative DVT * continue empiric antibiotics with vancomycin cefepime, Flagyl - increased cefepime to 2 grams Q12 hours, 12/21/22. * procalcitonin 14. Trend Q48 hours. * blood cultures without growth to date * supportive care. Elevate RLE extremity above the heart and apply ines wrap for edema control. * analgesics as needed * WBC 24 to 23.4 today. CRP >45 x 48 hours to 37.8 and slightly improved. Continue current IV antibiotic therapy. * Consult General surgery for further evaluation. * CT lower extremity without subcutaneous gas or focal fluid collection. * Trend CBC and CMP (2) Acute hyponatremia: Code(s): E87.1 - Hypo-osmolality and hyponatremia Status: Acute Assessment and Plan: sodium 124 declined to 122 this admission. * likely due to excess free water intake as patient reports drinking >1 gal of water per day * patient is receiving fluids at this type given acute kidney injury, see below * Sodium 126, corrected 128 today * urine sodium is 8 and urine creatinine is 80.4, FENa 0.2% suggesting pre- renal. * monitor levels closely to ensure appropriate rate of correction * appreciate nephrology recommendations (3) GERTRUDIS (acute kidney injury): Code(s): N17.9 - Acute kidney failure, unspecified Status: Acute Assessment and Plan: last labs available for review from 2018 with no evidence of kidney disease. Creatinine 2.5 on admission to 2.7 to 2.1 today * Per nephrology recommendations * renal ultrasound unremarkable * no evidence of urinary retention. Urine output is adequate. Urinary bladder noted to be moderately distended on renal ultrasound * continue to monitor intake and output * UA with 2+ protein * urine eosinophils negative * urine sodium is 8 and urine creatinine is 80.4, FENa 0.2% suggesting pre- renal.? (4) T2DM (type 2 diabetes mellitus): Code(s): E11.9 - Type 2 diabetes mellitus without complications Status: Chronic Assessment and Plan: poorly controlled. Blood sugars have been running high since patient ran out of his glimepiride over 1 week ago. Blood sugars in the 210-229 today * continue Accu-Cheks, sliding scale insulin, and hypoglycemia protocol * Increase Lantus 26 units q.h.s. * NovoLog 8 units scheduled with meals when eating plus high dose sliding scale aspart insulin. * tight glycemic control is important for wound healing. goal <180 mg/dL. * monitor glucose trends and adjust insulin regimen as needed * Consistent carb diet. * A1c 9%, uncontrolled. Last reported A1c 10.45 in 2018. (5) Loud snoring: Code(s): R06.83 - Snoring Status: Acute Assessment and Plan: check apnea monitor overnight for [facility] screening Plan CODE STATUS: FULL CODE Disposition: Home when infection improved. Time Spent With Patient Time with patient: Greater than 35 minutes Subjective Date/time seen: 12/21/22 10:39 Interval history: Patient is a 42-year-old male with uncontrolled type 2 diabetes mellitus who is seen in follow-up for an cellulitis of the right lower extremity. He was admitted for further management of RLE cellulitis. He reports persistent RLE pain, redness and swelling. He states it has been draining yellow fluid overnight and new fluid-filled blisters note
--- NOTE | 2022-12-21 10:39 | PM.IMPN ---
Progress Note: A&P Assessment and Plan (1) Cellulitis of right lower extremity: Code(s): L03.115 - Cellulitis of right lower limb Status: Acute Assessment and Plan: Patient with significant left lower extremity cellulitis. venous Doppler negative DVT continue empiric antibiotics with vancomycin cefepime, Flagyl - increased cefepime to 2 grams Q12 hours, 12/21/22. procalcitonin 14. Trend Q48 hours. blood cultures without growth to date supportive care. Elevate RLE extremity above the heart and apply ines wrap for edema control. analgesics as needed WBC 24 to 23.4 today. CRP >45 x 48 hours to 37.8 and slightly improved. Continue current IV antibiotic therapy. Consult General surgery for further evaluation. CT lower extremity without subcutaneous gas or focal fluid collection. Trend CBC and CMP (2) Acute hyponatremia: Code(s): E87.1 - Hypo-osmolality and hyponatremia Status: Acute Assessment and Plan: sodium 124 declined to 122 this admission. likely due to excess free water intake as patient reports drinking >1 gal of water per day patient is receiving fluids at this type given acute kidney injury, see below Sodium 126, corrected 128 today urine sodium is 8 and urine creatinine is 80.4, FENa 0.2% suggesting pre-renal. monitor levels closely to ensure appropriate rate of correction appreciate nephrology recommendations (3) GERTRUDIS (acute kidney injury): Code(s): N17.9 - Acute kidney failure, unspecified Status: Acute Assessment and Plan: last labs available for review from 2018 with no evidence of kidney disease. Creatinine 2.5 on admission to 2.7 to 2.1 today Per nephrology recommendations renal ultrasound unremarkable no evidence of urinary retention. Urine output is adequate. Urinary bladder noted to be moderately distended on renal ultrasound continue to monitor intake and output UA with 2+ protein urine eosinophils negative urine sodium is 8 and urine creatinine is 80.4, FENa 0.2% suggesting pre-renal.? (4) T2DM (type 2 diabetes mellitus): Code(s): E11.9 - Type 2 diabetes mellitus without complications Status: Chronic Assessment and Plan: poorly controlled. Blood sugars have been running high since patient ran out of his glimepiride over 1 week ago. Blood sugars in the 210-229 today continue Accu-Cheks, sliding scale insulin, and hypoglycemia protocol Increase Lantus 26 units q.h.s. NovoLog 8 units scheduled with meals when eating plus high dose sliding scale aspart insulin. tight glycemic control is important for wound healing. goal <180 mg/dL. monitor glucose trends and adjust insulin regimen as needed Consistent carb diet. A1c 9%, uncontrolled. Last reported A1c 10.45 in 2018. (5) Loud snoring: Code(s): R06.83 - Snoring Status: Acute Assessment and Plan: check apnea monitor overnight for [facility] screening Plan CODE STATUS: FULL CODE Disposition: Home when infection improved. Time Spent With Patient Time with patient: Greater than 35 minutes Subjective Date/time seen: 12/21/22 10:39 Interval history: Patient is a 42-year-old male with uncontrolled type 2 diabetes mellitus who is seen in follow-up for an cellulitis of the right lower extremity. He was admitted for further management of RLE cellulitis. He reports persistent RLE pain, redness and swelling. He states it has been draining yellow fluid overnight and new fluid-filled blisters noted. He denies paresthesia. General surgery noted non-purulent discharge from distal foot bullae. No fevers, chills, rigors, abd pain, N/V/D or changes in urination noted. He has not had a BM since admission, but report that he will not go until he is able to walk. He does not want to use the bedside commode. Review of Systems Review of Systems: All systems reviewed & are unremarkable except as noted in HPI and belo
--- NOTE | 2022-12-21 10:44 | PM.PNGS ---
Progress Note: A&P Assessment and Plan (1) Cellulitis of right lower extremity: Code(s): L03.115 - Cellulitis of right lower limb Status: Acute Assessment and Plan: Patient with right lower extremity cellulitis. WBC still 23,000 today. He is afebrile. CT scan RLE without any evidence of an abscess or necrotizing soft tissue infection. The fluid collection on his foot started draining serous fluid overnight, consistent with a blister. No evidence of an abscess. No indications for surgical intervention at this time. Continue broad-spectrum IV antibiotics. Plan I have discussed the patient's case and plan of care with Dr. Mccarty. Subjective Subjective Date/Time Seen: 12/21/22 08:44 Patient reports: no new complaints and afebrile Interval history: Patient sleeping when entering the room this morning. He was easy to arouse and had no complaints from overnight. He is still having right leg pain below the knee. He has not noticed any significant changes since yesterday. Review of Systems Review of Systems: ROS unchanged Exam Const: General: comfortable, no acute distress and obese Orientation/consciousness: patient oriented x3 Extrem: Right lower extremity: lower leg Details: erythema, tenderness and warmth and foot Details: toes with normal ROM, edema and vascular exam Details: normal capillary refill Other: Right lower leg and foot erythema and 4+ edema with weeping, erythema still within the demarcated lines drawn yesterday, small scab on anterior lower leg that is dry, there are two new small serous-filled blisters noted today on the right lateral foot and right lateral lower leg. The large bulla on the dorsal foot has a pinpoint opening on the top and has drained since seen yesterday, this is draining serous fluid, no purulent fluid, consistent with a blister. His right lower leg and foot is still very tender on exam Psych: Mental Status: mental status grossly normal Insight: Good insight present (Psych) Objective Data Vital Signs Vital Signs: Vital Signs - 24 hr 12/20/22 14:00 12/20/22 21:40 12/20/22 20:00 Temperature 98.9 F 98.1 F Pulse Rate 90 76 76 Respiratory Rate 18 28 H 28 H Blood Pressure 146/70 H 122/68 Pulse Oximetry 95 95 Oxygen Delivery Room Air 12/21/22 06:00 Temperature 98.2 F Pulse Rate 77 Respiratory Rate 24 H Blood Pressure 120/64 Pulse Oximetry 98 Oxygen Delivery Intake/Output Intake/Output: Intake & Output 12/18/22 12/19/22 12/20/22 12/21/22 23:59 23:59 23:59 23:59 Intake Total 650 3880 1880 2100 Output Total 3900 3000 2150 Balance -50 Meds/Results Medications: Active Medications Generic Name Dose Route Start Last Admin Trade Name Freq PRN Reason Stop Dose Admin Acetaminophen 650 mg 12/19/22 10:07 Acetaminophen 325 Mg Tablet PO Q6H PRN Pain 1-3 Hydrocodone Bitart/Acetaminophen 1 tab 12/19/22 10:11 12/21/22 05:55 Hydrocodone/Acetaminophen (*Crx) 7.5-325 Mg Tablet PO 1 tab Q6H PRN Administration Pain Rated 4-6 Dextrose 12.5 gm 12/18/22 22:22 Dextrose 50% 25 Gm/50 Ml Syringe IV PUSH PRN PRN Hypoglycemia Protocol Enoxaparin Sodium 40 mg 12/19/22 09:00 12/20/22 09:47 Enoxaparin 40 Mg/0.4 Ml Syringe SUB-Q 40 mg DAILY JOJO Administration Glucagon 1 mg 12/18/22 22:22 Glucagon For Inj 1 Mg Vial IM PRN PRN Hypoglycemia Protocol Glucose 15 gm 12/18/22 22:22 Glucose Oral Gel 15 Gm Of Glucse In 37.5 Gm Tube PO PRN PRN Hypoglycemia Protocol Metronidazole 500 mg in 100 mls @ 100 mls/hr 12/19/22 06:00 12/21/22 06:56 Flagyl 500 Mg/Iso Soln 100 Ml IVPB Infused Q8H JOJO Infusion Dextrose 1,000 mls @ 100 mls/hr 12/18/22 22:22 Dextrose 5% 1,000 Ml IVPB PRN PRN Hypoglycemia Protocol Sodium Chloride 1,000 mls @ 100 mls/hr 12/19/22 03:50 12/21/22 05:54 Normal Saline Iv IV CONT 100 mls/hr .Q10H JOJO
[2022-12-21 11:35] LABS: CRP 37.8 mg/dL (<1.0)
[2022-12-21 12:24] LABS: Glucose Point of Care 229 mg/dl (65-105)
--- NOTE | 2022-12-21 13:00 | P.PNNP_ITS ---
Progress Note: A&P Assessment and Plan (1) GERTRUDIS (acute kidney injury): Code(s): N17.9 - Acute kidney failure, unspecified Status: Acute Assessment and Plan: * improvement noted * no recent labs to compare to but assumption is that is GERTRUDIS * suspect related to infection with possible progression to ATN * evaluation to date: * renal ultrasound without obstruction * urine electrolytes prerenal * urine eosinophils negative * CPK low * agree with IVFs for now * follow trend of repeat labs and UOP ? (2) Hyponatremia: Code(s): E87.1 - Hypo-osmolality and hyponatremia Status: Acute Assessment and Plan: * relatively stable * suspect related to excessive free water intake and possible GERTRUDIS * follow repeat sodium levels * receiving IVFs given element of volume depletion by testing to date * suspect sodium make improve as renal function does (3) Cellulitis of right lower extremity: Code(s): L03.115 - Cellulitis of right lower limb Status: Acute Assessment and Plan: * as noted on presentation * IV antibiotics * follow culture data * local wound care * Surgery following -- recent CT of RLE results note (4) T2DM (type 2 diabetes mellitus): Code(s): E11.9 - Type 2 diabetes mellitus without complications Status: Chronic Assessment and Plan: * follow accuchecks * glycemic control per hospitalists Will continue to follow. Subjective Date/time seen: 12/21/22 13:00 Improvement in renal function noted by AM labs; however, still reports significant pain/discomfort in his right lower extremity; furthermore, he believes there is more purulent drainage coming from his leg although this was not noted by nursing or on previous exam; no other acute issues/events noted. Exam Narrative: General: Large male with mild distress with any palpation/movement of RLE Heart: normal S1 and S2; no rub Lungs: clear anteriorly, decreased at bases Abdomen: soft, nontender, nondistended, positive bowel sounds Extremities: no cyanosis or clubbing present Skin: RLE with 3 - 4+ edema associated with erythema/warmnt and tenderness to touch Objective Data Vital Signs Vital Signs: Vital Signs Temp Pulse Resp BP Pulse Ox O2 Del Method 12/21/22 13:00 98.0 F 75 22 H 124/62 97 12/21/22 09:46 Room Air 12/21/22 06:00 98.2 F 77 24 H 120/64 98 12/20/22 20:00 76 28 H 95 Room Air 12/20/22 21:40 98.1 F 76 28 H 122/68 Intake/Output Intake/Output: Intake & Output 12/18/22 12/19/22 12/20/22 12/21/22 23:59 23:59 23:59 23:59 Intake Total 650 3880 1880 2962 Output Total 3900 3000 2150 Balance 650 -45 -6376 812 Meds/Results Medications: Active Medications Generic Name Dose Route Start Last Admin Trade Name Freq PRN Reason Stop Dose Admin Acetaminophen 650 mg 12/19/22 10:07 Acetaminophen 325 Mg Tablet PO Q6H PRN Pain 1-3 Hydrocodone Bitart/Acetaminophen 1 tab 12/19/22 10:11 12/21/22 05:55 Hydrocodone/Acetaminophen (*Crx) 7.5-325 Mg Tablet PO 1 tab Q6H PRN Administration Pain Rated 4-6 Dextrose 12.5 gm 12/18/22 22:22
--- NOTE | 2022-12-21 13:00 | PM.PNNEP ---
Progress Note: A&P Assessment and Plan (1) GERTRUDIS (acute kidney injury): Code(s): N17.9 - Acute kidney failure, unspecified Status: Acute Assessment and Plan: improvement noted no recent labs to compare to but assumption is that is GERTRUDIS suspect related to infection with possible progression to ATN evaluation to date: renal ultrasound without obstruction urine electrolytes prerenal urine eosinophils negative CPK low agree with IVFs for now follow trend of repeat labs and UOP ? (2) Hyponatremia: Code(s): E87.1 - Hypo-osmolality and hyponatremia Status: Acute Assessment and Plan: relatively stable suspect related to excessive free water intake and possible GERTRUDIS follow repeat sodium levels receiving IVFs given element of volume depletion by testing to date suspect sodium make improve as renal function does (3) Cellulitis of right lower extremity: Code(s): L03.115 - Cellulitis of right lower limb Status: Acute Assessment and Plan: as noted on presentation IV antibiotics follow culture data local wound care Surgery following -- recent CT of RLE results note (4) T2DM (type 2 diabetes mellitus): Code(s): E11.9 - Type 2 diabetes mellitus without complications Status: Chronic Assessment and Plan: follow accuchecks glycemic control per hospitalists Will continue to follow. Subjective Date/time seen: 12/21/22 13:00 Improvement in renal function noted by AM labs; however, still reports significant pain/discomfort in his right lower extremity; furthermore, he believes there is more purulent drainage coming from his leg although this was not noted by nursing or on previous exam; no other acute issues/events noted. Exam Narrative: General: Large male with mild distress with any palpation/movement of RLE Heart: normal S1 and S2; no rub Lungs: clear anteriorly, decreased at bases Abdomen: soft, nontender, nondistended, positive bowel sounds Extremities: no cyanosis or clubbing present Skin: RLE with 3 - 4+ edema associated with erythema/warmnt and tenderness to touch Objective Data Vital Signs Vital Signs: Vital Signs Temp Pulse Resp BP Pulse Ox O2 Del Method 12/21/22 13:00 98.0 F 75 22 H 124/62 97 12/21/22 09:46 Room Air 12/21/22 06:00 98.2 F 77 24 H 120/64 98 12/20/22 20:00 76 28 H 95 Room Air 12/20/22 21:40 98.1 F 76 28 H 122/68 Intake/Output Intake/Output: Intake & Output 12/18/22 12/19/22 12/20/22 12/21/22 23:59 23:59 23:59 23:59 Intake Total 650 3880 1880 2962 Output Total 3900 3000 2150 Balance 650 20 1127 812 Meds/Results Medications: Active Medications Generic Name Dose Route Start Last Admin Trade Name Freq PRN Reason Stop Dose Admin Acetaminophen 650 mg 12/19/22 10:07 Acetaminophen 325 Mg Tablet PO Q6H PRN Pain 1-3 Hydrocodone Bitart/Acetaminophen 1 tab 12/19/22 10:11 12/21/22 05:55 Hydrocodone/Acetaminophen (*Crx) 7.5-325 Mg Tablet PO 1 tab Q6H PRN Administration Pain Rated 4-6 Dextrose 12.5 gm 12/18/22 22:22 Dextrose 50% 25 Gm/50 Ml Syringe IV PUSH PRN PRN Hypoglycemia Protocol Enoxaparin Sodium 40 mg 12/19/22 09:00 12/20/22 09:47 Enoxaparin 40 Mg/0.4 Ml Syringe SUB-Q 40 mg DAILY JOJO Administration Glucagon 1 mg 12/18/22 22:22 Glucagon For Inj 1 Mg Vial IM PRN PRN Hypoglycemia Protocol Glucose 15 gm 12/18/22 22:22 Glucose Oral Gel 15 Gm Of Glucse In 37.5 Gm Tube PO PRN PRN Hypoglycemia Protocol Metronidazole 500 mg in 100 mls @ 100 mls/hr 12/19/22 06:00 12/21/22 16:03 Flagyl 500 Mg/Iso Soln 100 Ml IVPB 100 mls/hr Q8H JOJO Administration Dextrose 1,000 mls @ 100 mls/hr 12/18/22 22:22 Dextrose 5% 1,000 Ml IVPB PRN PRN Hypoglycemia Protocol Sodium Chloride 1,000 mls @ 100 mls/hr 12/19/22
[2022-12-21] MEDS: INSULIN ASPART (*BKC) 100 UNITS/ML 8 UNITS SUB-Q ×2 (13:32→17:51)
[2022-12-21] MEDS: INSULIN ASPART (*BKC) 100 UNITS/ML SUB-Q ×2 (13:32→17:51)
[2022-12-21 14:00] VITALS: BP 124/62; PULSE 75; RESP 22; TEMP 36.7; O2SAT 97
[2022-12-21 17:09] LABS: Glucose Point of Care 236 mg/dl (65-105)
[2022-12-21 20:40] VITALS: BP 153/70; PULSE 91; RESP 24; TEMP 36.3; O2SAT 97
[2022-12-21] MEDS: SENNOSIDES 8.6 MG TABLET PO (20:46)
[2022-12-21] MEDS: INSULIN GLARGINE (*BKC) 100 UNITS/ML 26 UNITS SUB-Q (20:47)
[2022-12-21 20:50] VITALS: PULSE 91; RESP 24; O2SAT 97
[2022-12-21 21:28] LABS: Glucose Point of Care 216 mg/dl (65-105)
[2022-12-21 21:40] LABS: Osmolality, Urine 236 mOsm/kg (50-1200)
--- NOTE | 2022-12-21 23:04 | PCRCNOTE ---
pt refusing apnea link on 12/21. when RT stated she was going to put sleep study on him he stated no you are not putting that on me, I have a deviated septum. I have told everyone before you this and that is my problem, not sleep apnea.
[2022-12-21 23:15] LABS: Vancomycin Trough 19.6 ug/mL (10.0-20.0)
[2022-12-22 05:00] VITALS: BP 146/62; PULSE 92; RESP 26; TEMP 36.6; O2SAT 97
[2022-12-22 05:39] LABS: Basophils Absolute Auto 0.2 K/mm3 (0.0-0.1); Basophils Percent Auto 0.7 % (0.2-1.2); Eosinophils Absolute Auto 0.1 K/mm3 (0-0.3); Eosinophils Percent Auto 0.5 % (0-4.4); Hematocrit 36.9 % (42.0-52.0); Hemoglobin 12.4 g/dL (14.0-18.0); Immature Granulocyte Absolute 1.64 K/mm3 (0.00-0.031); Immature Granulocyte Percent A 6.4 % (0-0.5); Lymphocytes Absolute Auto 1.84 K/mm3 (0.9-3.2); Lymphocytes Percent Auto 7.2 % (18.3-44.2); Mean Corpuscular HGB Conc 33.6 g/dl (32-36); Mean Corpuscular Hemoglobin 31.8 pg (26-34); Mean Corpuscular Volume 94.6 fl (80-100); Mean Platelet Volume 10.1 fl (7.4-10.4); Monocytes Absolute Auto 1.6 K/mm3 (0.1-0.6); Monocytes Percent Auto 6.4 % (2.6-8.5); Neutrophils Percent Auto 78.8 % (45.5-73.1); Nucleated Red Blood Cells Perc 0.1 % (0.0-0.2); Platelet Count Result 264 k/mm3 (150-375); Red Cell Distribution Width 13.8 % (11.5-14.5); White Blood Count 25.4 K/mm3 (4.5-10.0)
[2022-12-22 05:45] LABS: Alanine Aminotransferase 48 U/L (6-50); Albumin Level 2.9 g/dL (3.5-5.1); Alkaline Phosphatase 318 U/L (38-126); Anion Gap 7 mmol/L (8-16); Aspartate Amino Transferase 58 U/L (17-59); Blood Urea Nitrogen 29 mg/dL (9-20); Calcium 7.4 mg/dL (8.4-10.2); Carbon Dioxide 23 mmol/L (22-30); Chloride 99 mmol/L (98-107); Estimated CRCL calculation 102 ml/min; Estimated Glomerular Filt Rate 60; Glucose 200 mg/dL (65-110); Potassium 3.6 mmol/L (3.4-5.0); Sodium 129 mmol/L (137-145)
[2022-12-22] MEDS: metroNIDAZOLE 500 MG/ISO 100ML 500 MG/100 ML BAG 100 MG IVPB ×3 (06:19→22:17)
[2022-12-22] MEDS: HYDROcodone/acetaminophen (*CRX) 7.5-325 MG TABLET 1 TAB PO ×2 (06:23→12:55)
[2022-12-22 06:28] LABS: Procalcitonin 5.5 ng/mL
[2022-12-22 09:03] LABS: Glucose Point of Care 187 mg/dl (65-105)
[2022-12-22] MEDS: ENOXAPARIN 40 MG/0.4 ML SYRINGE SUB-Q (09:13)
[2022-12-22] MEDS: INSULIN ASPART (*BKC) 100 UNITS/ML 8 UNITS SUB-Q ×3 (09:19→17:40)
[2022-12-22] MEDS: SODIUM CHLORIDE 0.9% IV 1,000 ML 100 ML IV CONT (09:44)
[2022-12-22 10:00] VITALS: PULSE 85; RESP 20; O2SAT 94
--- NOTE | 2022-12-22 11:28 | P.PNNP_ITS ---
Progress Note: A&P Assessment and Plan (1) GERTRUDIS (acute kidney injury): Code(s): N17.9 - Acute kidney failure, unspecified Status: Acute Assessment and Plan: * improvement noted * no recent labs to compare to but assumption is that is GERTRUDIS * suspect related to infection with possible progression to ATN * evaluation to date: * renal ultrasound without obstruction * urine electrolytes prerenal * urine eosinophils negative * CPK low * agree with IVFs for now * follow trend of repeat labs and UOP ? (2) Hyponatremia: Code(s): E87.1 - Hypo-osmolality and hyponatremia Status: Acute Assessment and Plan: * relatively stable * suspect related to excessive free water intake along with GERTRUDIS * follow repeat sodium levels * receiving IVFs given element of volume depletion by testing to date * suspect sodium make improve as renal function does (3) Cellulitis of right lower extremity: Code(s): L03.115 - Cellulitis of right lower limb Status: Acute Assessment and Plan: * as noted on presentation * IV antibiotics * follow culture data * local wound care * Surgery following -- recent CT of RLE results note (4) T2DM (type 2 diabetes mellitus): Code(s): E11.9 - Type 2 diabetes mellitus without complications Status: Chronic Assessment and Plan: * follow accuchecks * glycemic control per hospitalists Will continue to follow. Subjective Date/time seen: 12/22/22 11:28 Still reports on/off pain although he was sleeping comfortably when I visited him but then reported the pain when I woke him up to talk; no other issues/events overnight or earlier this AM; improvement in renal function noted by AM labs. Exam Narrative: General: Large male with mild distress with any palpation/movement of RLE Heart: normal S1 and S2; no rub Lungs: clear anteriorly, decreased at bases Abdomen: soft, nontender, nondistended, positive bowel sounds Extremities: no cyanosis or clubbing present Skin: RLE with JASIEL-wraps in place Objective Data Vital Signs Vital Signs: Vital Signs Temp Pulse Resp BP Pulse Ox O2 Del Method 12/22/22 05:00 97.8 F 92 26 H 146/62 H 97 12/21/22 20:50 91 24 H 97 Room Air 12/21/22 20:40 97.3 F L 91 24 H 153/70 H 97 12/21/22 14:00 98.0 F 75 22 H 124/62 97 Intake/Output Intake/Output: Intake & Output 12/19/22 12/20/22 12/21/22 12/22/22 23:59 23:59 23:59 23:59 Intake Total 3880 1880 5278 2300 Output Total 3900 3000 3750 550 Balance -20 -1120 1528 1750 Meds/Results Medications: Active Medications Generic Name Dose Route Start Last Admin Trade Name Freq PRN Reason Stop Dose Admin Acetaminophen 650 mg 12/19/22 10:07 Acetaminophen 325 Mg Tablet PO Q6H PRN Pain 1-3 Hydrocodone Bitart/Acetaminophen 1 tab 12/19/22 10:11 12/22/22 06:23 Hydrocodone/Acetaminophen (*Crx) 7.5-325 Mg Tablet PO 1 tab Q6H PRN Administration Pain Rated 4-6 Dextrose 12.5 gm 12/18/22 22:22 Dextrose 50% 25 Gm/50 Ml Syringe IV PUSH PRN PRN Hypoglycemia Protocol Enoxaparin Sodi
--- NOTE | 2022-12-22 11:28 | PM.PNNEP ---
Progress Note: A&P Assessment and Plan (1) GERTRUDIS (acute kidney injury): Code(s): N17.9 - Acute kidney failure, unspecified Status: Acute Assessment and Plan: improvement noted no recent labs to compare to but assumption is that is GERTRUDIS suspect related to infection with possible progression to ATN evaluation to date: renal ultrasound without obstruction urine electrolytes prerenal urine eosinophils negative CPK low agree with IVFs for now follow trend of repeat labs and UOP ? (2) Hyponatremia: Code(s): E87.1 - Hypo-osmolality and hyponatremia Status: Acute Assessment and Plan: relatively stable suspect related to excessive free water intake along with GERTRUDIS follow repeat sodium levels receiving IVFs given element of volume depletion by testing to date suspect sodium make improve as renal function does (3) Cellulitis of right lower extremity: Code(s): L03.115 - Cellulitis of right lower limb Status: Acute Assessment and Plan: as noted on presentation IV antibiotics follow culture data local wound care Surgery following -- recent CT of RLE results note (4) T2DM (type 2 diabetes mellitus): Code(s): E11.9 - Type 2 diabetes mellitus without complications Status: Chronic Assessment and Plan: follow accuchecks glycemic control per hospitalists Will continue to follow. Subjective Date/time seen: 12/22/22 11:28 Still reports on/off pain although he was sleeping comfortably when I visited him but then reported the pain when I woke him up to talk; no other issues/events overnight or earlier this AM; improvement in renal function noted by AM labs. Exam Narrative: General: Large male with mild distress with any palpation/movement of RLE Heart: normal S1 and S2; no rub Lungs: clear anteriorly, decreased at bases Abdomen: soft, nontender, nondistended, positive bowel sounds Extremities: no cyanosis or clubbing present Skin: RLE with JASIEL-wraps in place Objective Data Vital Signs Vital Signs: Vital Signs Temp Pulse Resp BP Pulse Ox O2 Del Method 12/22/22 05:00 97.8 F 92 26 H 146/62 H 97 12/21/22 20:50 91 24 H 97 Room Air 12/21/22 20:40 97.3 F L 91 24 H 153/70 H 97 12/21/22 14:00 98.0 F 75 22 H 124/62 97 Intake/Output Intake/Output: Intake & Output 12/19/22 12/20/22 12/21/22 12/22/22 23:59 23:59 23:59 23:59 Intake Total 3880 1880 5278 2300 Output Total 3900 3000 3750 550 Balance -20 -1120 1528 1750 Meds/Results Medications: Active Medications Generic Name Dose Route Start Last Admin Trade Name Freq PRN Reason Stop Dose Admin Acetaminophen 650 mg 12/19/22 10:07 Acetaminophen 325 Mg Tablet PO Q6H PRN Pain 1-3 Hydrocodone Bitart/Acetaminophen 1 tab 12/19/22 10:11 12/22/22 06:23 Hydrocodone/Acetaminophen (*Crx) 7.5-325 Mg Tablet PO 1 tab Q6H PRN Administration Pain Rated 4-6 Dextrose 12.5 gm 12/18/22 22:22 Dextrose 50% 25 Gm/50 Ml Syringe IV PUSH PRN PRN Hypoglycemia Protocol Enoxaparin Sodium 40 mg 12/19/22 09:00 12/22/22 09:13 Enoxaparin 40 Mg/0.4 Ml Syringe SUB-Q 40 mg DAILY JOJO Administration Glucagon 1 mg 12/18/22 22:22 Glucagon For Inj 1 Mg Vial IM PRN PRN Hypoglycemia Protocol Glucose 15 gm 12/18/22 22:22 Glucose Oral Gel 15 Gm Of Glucse In 37.5 Gm Tube PO PRN PRN Hypoglycemia Protocol Metronidazole 500 mg in 100 mls @ 100 mls/hr 12/19/22 06:00 12/22/22 06:19 Flagyl 500 Mg/Iso Soln 100 Ml IVPB 100 mls/hr Q8H JOJO Administration Dextrose 1,000 mls @ 100 mls/hr 12/18/22 22:22 Dextrose 5% 1,000 Ml IVPB PRN PRN Hypoglycemia Protocol Sodium Chloride 1,000 mls @ 100 mls/hr 12/19/22 03:50 12/22/22 09:44 Normal Saline Iv IV CONT 100 mls/hr .Q10H JOJO Administration Cefepime HCl 2 gm in 50 mls @ 100 mls/
--- NOTE | 2022-12-22 12:12 | P.PNIM_ITS ---
Progress Note: A&P Assessment and Plan (1) Cellulitis of right lower extremity: Code(s): L03.115 - Cellulitis of right lower limb Status: Acute Assessment and Plan: Patient with significant left lower extremity cellulitis. * venous Doppler negative DVT * continue empiric antibiotics with vancomycin cefepime, Flagyl - increased cefepime to 2 grams Q12 hours, 12/21/22. * procalcitonin 14. Repeat 5.5 * blood cultures without growth to date * supportive care. Elevate RLE extremity above the heart and apply ines wrap for edema control. * analgesics as needed * WBC 24- 23- 25 today. CRP >45 x 48 hours to 37.8 and slightly improved 12/21. Continue current IV antibiotic therapy. * Consulted General surgery for further evaluation and no surgical needs at this time. * CT lower extremity without subcutaneous gas or focal fluid collection. * Trend CBC and CMP (2) Acute hyponatremia: Code(s): E87.1 - Hypo-osmolality and hyponatremia Status: Acute Assessment and Plan: sodium 124 declined to 122 this admission. * likely due to excess free water intake as patient reports drinking >1 gal of water per day * patient is receiving fluids at this type given acute kidney injury, see below * Sodium 126, corrected 128 today * urine sodium is 8 and urine creatinine is 80.4, FENa 0.2% suggesting pre- renal. * monitor levels closely to ensure appropriate rate of correction * appreciate nephrology recommendations (3) GERTRUDIS (acute kidney injury): Code(s): N17.9 - Acute kidney failure, unspecified Status: Acute Assessment and Plan: last labs available for review from 2018 with no evidence of kidney disease. Creatinine 2.5 on admission to 2.7 to 2.1 today * Per nephrology recommendations * renal ultrasound unremarkable * no evidence of urinary retention. Urine output is adequate. Urinary bladder noted to be moderately distended on renal ultrasound * continue to monitor intake and output * UA with 2+ protein * urine eosinophils negative * urine sodium is 8 and urine creatinine is 80.4, FENa 0.2% suggesting pre- renal.? * continues to improve. 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 Blood sugars have been running high since patient ran out of his glimepiride over 1 week ago. Blood sugars in the 210-229 today * continue Accu-Cheks, sliding scale insulin, and hypoglycemia protocol * Increase Lantus 26 units q.h.s. * NovoLog 8 units scheduled with meals when eating plus high dose sliding scale aspart insulin. * tight glycemic control is important for wound healing. goal <180 mg/dL. * monitor glucose trends and adjust insulin regimen as needed * Consistent carb diet. * A1c 9%, uncontrolled. Last reported A1c 10.4% in 2018. (5) Loud snoring: Code(s): R06.83 - Snoring Status: Acute Assessment and Plan: apnea monitor overnight for ELIZABETH screening ordered and patient refusing. Plan CODE STATUS: FULL CODE Disposition: Home when infection improved. Time Spent With Patient Time with patient: 25 - 35 minutes Subjective Date/time seen: 12/22/22 12:12 Interval history: Patient is a 42-year-old male with uncontrolle
--- NOTE | 2022-12-22 12:12 | PM.IMPN ---
Progress Note: A&P Assessment and Plan (1) Cellulitis of right lower extremity: Code(s): L03.115 - Cellulitis of right lower limb Status: Acute Assessment and Plan: Patient with significant left lower extremity cellulitis. venous Doppler negative DVT continue empiric antibiotics with vancomycin cefepime, Flagyl - increased cefepime to 2 grams Q12 hours, 12/21/22. procalcitonin 14. Repeat 5.5 blood cultures without growth to date supportive care. Elevate RLE extremity above the heart and apply ines wrap for edema control. analgesics as needed WBC 24- 23- 25 today. CRP >45 x 48 hours to 37.8 and slightly improved 12/21. Continue current IV antibiotic therapy. Consulted General surgery for further evaluation and no surgical needs at this time. CT lower extremity without subcutaneous gas or focal fluid collection. Trend CBC and CMP (2) Acute hyponatremia: Code(s): E87.1 - Hypo-osmolality and hyponatremia Status: Acute Assessment and Plan: sodium 124 declined to 122 this admission. likely due to excess free water intake as patient reports drinking >1 gal of water per day patient is receiving fluids at this type given acute kidney injury, see below Sodium 126, corrected 128 today urine sodium is 8 and urine creatinine is 80.4, FENa 0.2% suggesting pre-renal. monitor levels closely to ensure appropriate rate of correction appreciate nephrology recommendations (3) GERTRUDIS (acute kidney injury): Code(s): N17.9 - Acute kidney failure, unspecified Status: Acute Assessment and Plan: last labs available for review from 2018 with no evidence of kidney disease. Creatinine 2.5 on admission to 2.7 to 2.1 today Per nephrology recommendations renal ultrasound unremarkable no evidence of urinary retention. Urine output is adequate. Urinary bladder noted to be moderately distended on renal ultrasound continue to monitor intake and output UA with 2+ protein urine eosinophils negative urine sodium is 8 and urine creatinine is 80.4, FENa 0.2% suggesting pre-renal.? continues to improve. 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 Blood sugars have been running high since patient ran out of his glimepiride over 1 week ago. Blood sugars in the 210-229 today continue Accu-Cheks, sliding scale insulin, and hypoglycemia protocol Increase Lantus 26 units q.h.s. NovoLog 8 units scheduled with meals when eating plus high dose sliding scale aspart insulin. tight glycemic control is important for wound healing. goal <180 mg/dL. monitor glucose trends and adjust insulin regimen as needed Consistent carb diet. A1c 9%, uncontrolled. Last reported A1c 10.4% in 2018. (5) Loud snoring: Code(s): R06.83 - Snoring Status: Acute Assessment and Plan: apnea monitor overnight for ELIZABETH screening ordered and patient refusing. Plan CODE STATUS: FULL CODE Disposition: Home when infection improved. Time Spent With Patient Time with patient: 25 - 35 minutes Subjective Date/time seen: 12/22/22 12:12 Interval history: Patient is a 42-year-old male with uncontrolled type 2 diabetes mellitus who is seen in follow-up for an cellulitis of the right lower extremity. He was admitted for further management of RLE cellulitis. He has been refusing Apnea monitor the past 2 nights. He states he has not been able to get out of bed due to leg pain. No fevers, rigors or diaphoresis. He has a moist cough, but denies SOB or chest pain. His leg is still very painful and swollen. Review of Syste
[2022-12-22 12:25] LABS: Glucose Point of Care 181 mg/dl (65-105)
[2022-12-22 12:56] LABS: Alveolar/Arterial O2 Gradient 25.1 mmHg; Base Excess ABG -0.6 mEq/l (+/-2.0); Carboxyhemoglobin 0.4 % THb (0-2.0); Fractional Inspired Oxygen 21 %; HCO3 ABG 24.6 mEq/l (22.0-26.0); Methemoglobin ABG 0.2 %THb (0-1.5); Oxygen Content ABG 18.4 %vol (16.0-22.0); Oxygen Saturation ABG 94.7 % (95.0-100.0); Oxyhemoglobin 93.8 % THb (90.0-100.0); PCO2 ABG 42.3 mmHg (35.0-45.0); PO2 FiO2 Ratio Arterial Blood 3.52 %; Reduced Hemoglobin 5.6 %THb (0-5.0); Total Hemoglobin 13.9 g/dL (12.0-18.0); pH ABG 7.382 (7.350-7.450)
[2022-12-22 12:58] LABS: Device ROOM AIR; Modified Allen's Test Pass; Site Drawn LEFT RADIAL
[2022-12-22 14:00] VITALS: BP 155/70; PULSE 85; RESP 20; TEMP 35.7; O2SAT 94
[2022-12-22 16:30] LABS: Glucose Point of Care 148 mg/dl (65-105)
[2022-12-22 20:02] VITALS: BP 126/86; PULSE 90; RESP 22; TEMP 36.8; O2SAT 96
[2022-12-22 20:44] LABS: Glucose Point of Care 120 mg/dl (65-105)
[2022-12-22] MEDS: INSULIN GLARGINE (*BKC) 100 UNITS/ML 26 UNITS SUB-Q (20:48)
[2022-12-22] MEDS: HYDROCORTISONE 1% 30 GM CREAM 1 APPLIC TOPICAL (20:48)
[2022-12-22 21:00] VITALS: PULSE 90; RESP 22; O2SAT 96
[2022-12-23 05:27] VITALS: BP 123/61; PULSE 86; RESP 18; TEMP 37.1; O2SAT 98
[2022-12-23] MEDS: metroNIDAZOLE 500 MG/ISO 100ML 500 MG/100 ML BAG 100 MG IVPB (05:29)
[2022-12-23] MEDS: SODIUM CHLORIDE 0.9% IV 1,000 ML 50 ML IV CONT (05:30)
[2022-12-23 05:48] LABS: Basophils Absolute Auto 0.2 K/mm3 (0.0-0.1); Basophils Percent Auto 0.6 % (0.2-1.2); Eosinophils Absolute Auto 0.1 K/mm3 (0-0.3); Eosinophils Percent Auto 0.2 % (0-4.4); Hematocrit 36.6 % (42.0-52.0); Hemoglobin 12.5 g/dL (14.0-18.0); Immature Granulocyte Absolute 1.92 K/mm3 (0.00-0.031); Immature Granulocyte Percent A 7.8 % (0-0.5); Lymphocytes Absolute Auto 1.83 K/mm3 (0.9-3.2); Lymphocytes Percent Auto 7.4 % (18.3-44.2); Mean Corpuscular HGB Conc 34.2 g/dl (32-36); Mean Corpuscular Hemoglobin 32.1 pg (26-34); Mean Corpuscular Volume 93.8 fl (80-100); Mean Platelet Volume 9.5 fl (7.4-10.4); Monocytes Absolute Auto 1.4 K/mm3 (0.1-0.6); Monocytes Percent Auto 5.7 % (2.6-8.5); Neutrophils Absolute Auto 19.4 K/mm3 (1.3-6.7); Neutrophils Percent Auto 78.3 % (45.5-73.1); Platelet Count Result 245 k/mm3 (150-375); Red Cell Distribution Width 13.7 % (11.5-14.5); White Blood Count 24.7 K/mm3 (4.5-10.0)
[2022-12-23 06:06] LABS: Alanine Aminotransferase 38 U/L (6-50); Albumin Level 2.6 g/dL (3.5-5.1); Alkaline Phosphatase 302 U/L (38-126); Anion Gap 3 mmol/L (8-16); Aspartate Amino Transferase 40 U/L (17-59); Bilirubin,Total 0.9 mg/dL (0.2-1.3); Blood Urea Nitrogen 21 mg/dL (9-20); Calcium 7.2 mg/dL (8.4-10.2); Carbon Dioxide 23 mmol/L (22-30); Chloride 101 mmol/L (98-107); Estimated CRCL calculation 110 ml/min; Estimated Glomerular Filt Rate > 60; Glucose 189 mg/dL (65-110); Phosphorus 3.5 mg/dL (2.5-4.5); Potassium 3.4 mmol/L (3.4-5.0); Sodium 127 mmol/L (137-145)
[2022-12-23 06:16] LABS: CRP 22.1 mg/dL (<1.0)
[2022-12-23 07:45] LABS: Glucose Point of Care 172 mg/dl (65-105)
[2022-12-23 08:45] LABS: Glucose Point of Care 171 mg/dl (65-105)
--- NOTE | 2022-12-23 09:01 | PM.PNGS ---
Progress Note: A&P Assessment and Plan (1) Cellulitis of right lower extremity: Code(s): L03.115 - Cellulitis of right lower limb Status: Acute Assessment and Plan: Severe cellulitis of the right lower extremity without abscess formation in the setting of uncontrolled diabetes. CT scan showed no evidence of drainable abscess. He remains on broad-spectrum IV antibiotics. No role for surgical management at this point. Management as per primary team. Please consult again of surgery is needed to re-evaluate the patient. Subjective Subjective Date/Time Seen: 12/23/22 09:01 Interval history: Patient without acute changes from surgical standpoint. White count is stable around 24,000. He states that the right leg does have less pain. It is currently wrapped with an Jose wrap with serous drainage from rupture of multiple blisters. Review of Systems Review of Systems: The remainder of the review of systems to include constitutional, HEENT, cardiovascular, respiratory, GI, , integumentary, musculoskeletal, endocrine, immunologic, hematologic, psychiatric, and neurologic are all negative except for which is mentioned above in the HPI. Exam Narrative: Right lower extremity with moderate to severe swelling of the right lower extremity from the knee distal. There is no proximal streaking or spreading of redness above the knee and has actually improved over last 2 days. He has development of multiple non purulent bullae on the lower extremity which is draining serous fluid. No areas of fluctuance are noted. Objective Data Vital Signs Vital Signs: Vital Signs - 24 hr 12/22/22 14:00 12/22/22 10:00 12/22/22 16:00 Temperature 35.7 C L Pulse Rate 85 85 Respiratory Rate 20 20 Blood Pressure 155/70 H Pulse Oximetry 94 94 Oxygen Delivery Room Air Room Air 12/22/22 20:02 12/22/22 21:00 12/23/22 05:27 Temperature 36.8 C 37.1 C Pulse Rate 90 90 86 Respiratory Rate 22 H 22 H 18 Blood Pressure 126/86 123/61 Pulse Oximetry 96 96 98 Oxygen Delivery Room Air Intake/Output Intake/Output: Intake & Output 12/20/22 12/21/22 12/22/22 12/23/22 23:59 23:59 23:59 23:59 Intake Total 1880 5278 4230 1550 Output Total 3000 3750 2000 1250 Balance -1120 1528 2230 300 Meds/Results Medications: Active Medications Generic Name Dose Route Start Last Admin Trade Name Freq PRN Reason Stop Dose Admin Acetaminophen 650 mg 12/19/22 10:07 Acetaminophen 325 Mg Tablet PO Q6H PRN Pain 1-3 Hydrocodone Bitart/Acetaminophen 1 tab 12/19/22 10:11 12/22/22 12:55 Hydrocodone/Acetaminophen (*Crx) 7.5-325 Mg Tablet PO 1 tab Q6H PRN Administration Pain Rated 4-6 Albuterol 2.5 mg 12/22/22 14:20 Albuterol Sulfate Neb 2.5 Mg/3 Ml Inh INHALATION Q6HRT PRN Shortness Of Breath Dextrose 12.5 gm 12/18/22 22:22 Dextrose 50% 25 Gm/50 Ml Syringe IV PUSH PRN PRN Hypoglycemia Protocol Enoxaparin Sodium 40 mg 12/19/22 09:00 12/22/22 09:13 Enoxaparin 40 Mg/0.4 Ml Syringe SUB-Q 40 mg DAILY JOJO Administration Glucagon 1 mg 12/18/22 22:22 Glucagon For Inj 1 Mg Vial IM PRN PRN Hypoglycemia Protocol Glucose 15 gm 12/18/22 22:22 Glucose Oral Gel 15 Gm Of Glucse In 37.5 Gm Tube PO PRN PRN Hypoglycemia Protocol Hydrocortisone 1 applic 12/22/22 21:00 12/22/22 20:48 Hydrocortisone 1% 30 Gm Cream TOPICAL 1 applic Q12HR JOJO Administration Metronidazole 500 mg in 100 mls @ 100 mls/hr 12/19/22 06:00 12/23/22 05:29 Flagyl 500 Mg/Iso Soln 100 Ml IVPB 100 mls/hr Q8H JOJO Administration Dextrose 1,000 mls @ 100 mls/hr 12/18/22 22:22 Dextrose 5% 1,000 Ml IVPB PRN PRN Hypoglycemia Protocol Sodium Chloride 1,000 mls @ 50 mls/hr 12/19/22 03:50 12/23/22 05:30 Normal Saline Iv IV CONT 50 mls/hr .Q20H JOJO Administration Cefepime HCl 2 gm in 50 mls @ 100 mls/hr 0
--- NOTE | 2022-12-23 09:30 | P.PNIM_ITS ---
Progress Note: A&P Assessment and Plan (1) Cellulitis of right lower extremity: Code(s): L03.115 - Cellulitis of right lower limb Status: Acute Assessment and Plan: Patient with significant left lower extremity cellulitis. * venous Doppler negative DVT * Treated with empiric antibiotics with vancomycin cefepime, Flagyl - increased cefepime to 2 grams Q12 hours, 12/21/22. * change to PO Augmentin 875/125 mg PO BID and Doxycycline 100 mg PO BID for MRSA, staph, strep and anaerobe coverage. * procalcitonin 14. Repeat 5.5 * blood cultures without growth to date * supportive care. Elevate RLE extremity above the heart and apply ines wrap for edema control. * analgesics as needed * WBC 24- 23- 25 today. CRP >45 x 48 hours to 37.8 and slightly improved 12/21. Continue current IV antibiotic therapy. * Consulted General surgery for further evaluation and no surgical needs at this time. * CT lower extremity without subcutaneous gas or focal fluid collection. * 12/23/22 WBC 24, however, CRP and procalcitonin downtrending and patient reports improvement in pain. Increased ROM also noted. (2) Acute hyponatremia: Code(s): E87.1 - Hypo-osmolality and hyponatremia Status: Acute Assessment and Plan: sodium 124 declined to 122 this admission. * likely due to excess free water intake as patient reports drinking >1 gal of water per day * patient is receiving fluids at this type given acute kidney injury, see below * Sodium 126, corrected 128 today * urine sodium is 8 and urine creatinine is 80.4, FENa 0.2% suggesting pre- renal. * monitor levels closely to ensure appropriate rate of correction * appreciate nephrology recommendations (3) GERTRUDIS (acute kidney injury): Code(s): N17.9 - Acute kidney failure, unspecified Status: Acute Assessment and Plan: last labs available for review from 2018 with no evidence of kidney disease. Creatinine 2.5 on admission to 2.7 to 2.1 today * Per nephrology recommendations * renal ultrasound unremarkable * no evidence of urinary retention. Urine output is adequate. Urinary bladder noted to be moderately distended on renal ultrasound * continue to monitor intake and output * UA with 2+ protein * urine eosinophils negative * urine sodium is 8 and urine creatinine is 80.4, FENa 0.2% suggesting pre- renal.? * continues to improve. 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 Blood sugars have been running high since patient ran out of his glimepiride over 1 week ago. Blood sugars in the 210-229 today * continue Accu-Cheks, sliding scale insulin, and hypoglycemia protocol * Increase Lantus 26 units q.h.s. * NovoLog 8 units scheduled with meals when eating plus high dose sliding scale aspart insulin. * tight glycemic control is important for wound healing. goal <180 mg/dL. * monitor glucose trends and adjust insulin regimen as needed * Consistent carb diet. * A1c 9%, uncontrolled. Last reported A1c 10.4% in 2018. He states it was 13% before COVID19 pandemic. * We discussed adding second agent to glimepiride. (5) Loud snoring: Code(s): R06.83 - Snoring Status: Acute Assessment and Plan: apnea monitor overnight for ELIZABETH screening
--- NOTE | 2022-12-23 09:30 | PM.IMPN ---
Progress Note: A&P Assessment and Plan (1) Cellulitis of right lower extremity: Code(s): L03.115 - Cellulitis of right lower limb Status: Acute Assessment and Plan: Patient with significant left lower extremity cellulitis. venous Doppler negative DVT Treated with empiric antibiotics with vancomycin cefepime, Flagyl - increased cefepime to 2 grams Q12 hours, 12/21/22. change to PO Augmentin 875/125 mg PO BID and Doxycycline 100 mg PO BID for MRSA, staph, strep and anaerobe coverage. procalcitonin 14. Repeat 5.5 blood cultures without growth to date supportive care. Elevate RLE extremity above the heart and apply ines wrap for edema control. analgesics as needed WBC 24- 23- 25 today. CRP >45 x 48 hours to 37.8 and slightly improved 12/21. Continue current IV antibiotic therapy. Consulted General surgery for further evaluation and no surgical needs at this time. CT lower extremity without subcutaneous gas or focal fluid collection. 12/23/22 WBC 24, however, CRP and procalcitonin downtrending and patient reports improvement in pain. Increased ROM also noted. (2) Acute hyponatremia: Code(s): E87.1 - Hypo-osmolality and hyponatremia Status: Acute Assessment and Plan: sodium 124 declined to 122 this admission. likely due to excess free water intake as patient reports drinking >1 gal of water per day patient is receiving fluids at this type given acute kidney injury, see below Sodium 126, corrected 128 today urine sodium is 8 and urine creatinine is 80.4, FENa 0.2% suggesting pre-renal. monitor levels closely to ensure appropriate rate of correction appreciate nephrology recommendations (3) GERTRUDIS (acute kidney injury): Code(s): N17.9 - Acute kidney failure, unspecified Status: Acute Assessment and Plan: last labs available for review from 2018 with no evidence of kidney disease. Creatinine 2.5 on admission to 2.7 to 2.1 today Per nephrology recommendations renal ultrasound unremarkable no evidence of urinary retention. Urine output is adequate. Urinary bladder noted to be moderately distended on renal ultrasound continue to monitor intake and output UA with 2+ protein urine eosinophils negative urine sodium is 8 and urine creatinine is 80.4, FENa 0.2% suggesting pre-renal.? continues to improve. 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 Blood sugars have been running high since patient ran out of his glimepiride over 1 week ago. Blood sugars in the 210-229 today continue Accu-Cheks, sliding scale insulin, and hypoglycemia protocol Increase Lantus 26 units q.h.s. NovoLog 8 units scheduled with meals when eating plus high dose sliding scale aspart insulin. tight glycemic control is important for wound healing. goal <180 mg/dL. monitor glucose trends and adjust insulin regimen as needed Consistent carb diet. A1c 9%, uncontrolled. Last reported A1c 10.4% in 2018. He states it was 13% before COVID19 pandemic. We discussed adding second agent to glimepiride. (5) Loud snoring: Code(s): R06.83 - Snoring Status: Acute Assessment and Plan: apnea monitor overnight for ELIZABETH screening ordered and patient refusing. Plan CODE STATUS: FULL CODE Disposition: Home when infection improved. Time Spent With Patient Time: 40 minutes time spent reviewing medical chart, lab work, imaging, patient assessment, and developing treatment plan. All patient and family questions answered to the best of my ability. Subjective Date/time seen: 12/23/22 09:30 Interval
[2022-12-23 09:40] VITALS: PULSE 86; RESP 20; O2SAT 96
[2022-12-23] MEDS: INSULIN ASPART (*BKC) 100 UNITS/ML 8 UNITS SUB-Q ×3 (09:43→17:56)
[2022-12-23] MEDS: ENOXAPARIN 40 MG/0.4 ML SYRINGE SUB-Q (09:45)
[2022-12-23] MEDS: HYDROCORTISONE 1% 30 GM CREAM 1 APPLIC TOPICAL ×2 (09:46→20:59)
--- NOTE | 2022-12-23 09:58 | PCPTNOTE ---
attempted PT evaluation 850, pt refused PT. He was sitting up in a recliner with his leg elevated and refused to get up or attempt to walk.
--- NOTE | 2022-12-23 12:02 | P.PNNP_ITS ---
Progress Note: A&P Assessment and Plan (1) GERTRUDIS (acute kidney injury): Code(s): N17.9 - Acute kidney failure, unspecified Status: Acute Assessment and Plan: * GERTRUDIS * creatinine started to 2 point 5, peaked to 2.7, and now down to 1.2. * no recent labs to compare to but assumption is that is GERTRUDIS * suspect related to infection with possible progression to ATN * evaluation to date: * renal ultrasound without obstruction * urine electrolytes prerenal * urine eosinophils negative * CPK low * He is eating. * Off IV fluids. * Creatinine is normal. ? (2) Hyponatremia: Code(s): E87.1 - Hypo-osmolality and hyponatremia Status: Acute Assessment and Plan: * relatively stable . Value bouncing around in the high 120s. * suspect related to excessive free water intake along with GERTRUDIS * follow repeat sodium levels * If low again tomorrow will need further workup. (3) Cellulitis of right lower extremity: Code(s): L03.115 - Cellulitis of right lower limb Status: Acute Assessment and Plan: * as noted on presentation * IV antibiotics * follow culture data * local wound care * Surgery following -- recent CT of RLE results note (4) T2DM (type 2 diabetes mellitus): Qualifiers: Diabetes mellitus care home insulin use: without care home use Diabetes mellitus complication status: with hyperglycemia Qualified Code(s): E11.65 - Type 2 diabetes mellitus with hyperglycemia Code(s): E11.9 - Type 2 diabetes mellitus without complications Status: Chronic Assessment and Plan: * On sliding scale insulin per hospitalist's Subjective Date/time seen: 12/23/22 12:02 Interval history: Christopher's feeling better. He is eager for discharge Exam Narrative: General: Large male with mild distress with any palpation/movement of RLE Heart: normal S1 and S2; no rub and no gallop Lungs: clear anteriorly, decreased at bases Abdomen: soft, nontender, nondistended, positive bowel sounds Extremities: 1+ edema Skin: RLE with JASIEL-wraps in place Objective Data Vital Signs Vital Signs: Vital Signs - 24 hr 12/22/22 14:00 12/22/22 16:00 12/22/22 20:02 Temperature 96.2 F L 98.2 F Pulse Rate 85 90 Respiratory Rate 20 22 H Blood Pressure 155/70 H 126/86 Pulse Oximetry 94 96 Oxygen Delivery Room Air 12/22/22 21:00 12/23/22 05:27 Temperature 98.7 F Pulse Rate 90 86 Respiratory Rate 22 H 18 Blood Pressure 123/61 Pulse Oximetry 96 98 Oxygen Delivery Room Air Intake/Output Intake/Output: Intake & Output 12/20/22 12/21/22 12/22/22 12/23/22 23:59 23:59 23:59 23:59 Intake Total 1880 5278 4230 1790 Output Total 3000 3750 2000 1250 Balance -1120 1528 2230 540 Meds/Results Medications: Active Medications Generic Name Dose Route Start Last Admin Trade Name Freq PRN Reason Stop Dose Admin Acetaminophen 650 mg 12/19/22 10:07 Acetaminophen 325 Mg Tablet PO Q6H PRN Pain 1-3 Hydrocodone Bitart/Acetaminophen 1 tab 12/19/22 10:11 12/22/22 12:55 Hydrocodone/Acetaminophen (*Crx) 7.5-325 Mg
--- NOTE | 2022-12-23 12:02 | PM.PNNEP ---
Progress Note: A&P Assessment and Plan (1) GERTRUDIS (acute kidney injury): Code(s): N17.9 - Acute kidney failure, unspecified Status: Acute Assessment and Plan: GERTRUDIS creatinine started to 2 point 5, peaked to 2.7, and now down to 1.2. no recent labs to compare to but assumption is that is GERTRUDIS suspect related to infection with possible progression to ATN evaluation to date: renal ultrasound without obstruction urine electrolytes prerenal urine eosinophils negative CPK low He is eating. Off IV fluids. Creatinine is normal. ? (2) Hyponatremia: Code(s): E87.1 - Hypo-osmolality and hyponatremia Status: Acute Assessment and Plan: relatively stable . Value bouncing around in the high 120s. suspect related to excessive free water intake along with GERTRUDIS follow repeat sodium levels If low again tomorrow will need further workup. 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 He is eager for discharge Exam Narrative: General: Large male with mild distress with any palpation/movement of RLE Heart: normal S1 and S2; no rub and no gallop Lungs: clear anteriorly, decreased at bases Abdomen: soft, nontender, nondistended, positive bowel sounds Extremities: 1+ edema Skin: RLE with JASIEL-wraps in place Objective Data Vital Signs Vital Signs: Vital Signs - 24 hr 12/22/22 14:00 12/22/22 16:00 12/22/22 20:02 Temperature 96.2 F L 98.2 F Pulse Rate 85 90 Respiratory Rate 20 22 H Blood Pressure 155/70 H 126/86 Pulse Oximetry 94 96 Oxygen Delivery Room Air 12/22/22 21:00 12/23/22 05:27 Temperature 98.7 F Pulse Rate 90 86 Respiratory Rate 22 H 18 Blood Pressure 123/61 Pulse Oximetry 96 98 Oxygen Delivery Room Air Intake/Output Intake/Output: Intake & Output 12/20/22 12/21/22 12/22/22 12/23/22 23:59 23:59 23:59 23:59 Intake Total 1880 5278 4230 1790 Output Total 3000 3750 2000 1250 Balance -1120 1528 2230 540 Meds/Results Medications: Active Medications Generic Name Dose Route Start Last Admin Trade Name Freq PRN Reason Stop Dose Admin Acetaminophen 650 mg 12/19/22 10:07 Acetaminophen 325 Mg Tablet PO Q6H PRN Pain 1-3 Hydrocodone Bitart/Acetaminophen 1 tab 12/19/22 10:11 12/22/22 12:55 Hydrocodone/Acetaminophen (*Crx) 7.5-325 Mg Tablet PO 1 tab Q6H PRN Administration Pain Rated 4-6 Albuterol 2.5 mg 12/22/22 14:20 Albuterol Sulfate Neb 2.5 Mg/3 Ml Inh INHALATION Q6HRT PRN Shortness Of Breath Dextrose 12.5 gm 12/18/22 22:22 Dextrose 50% 25 Gm/50 Ml Syringe IV PUSH PRN PRN Hypoglycemia Protocol Enoxaparin Sodium 40 mg 12/19/22 09:00 12/23/22 09:45 Enoxaparin 40 Mg/0.4 Ml Syringe SUB-Q 40 mg DAILY JOJO Administration Glucagon 1 mg 12/18/22 22:22 Glucagon For Inj 1 Mg Vial IM PRN PRN Hypoglycemia Protocol Glucose 15 gm 12/18/22 22:22 Glucose Oral Gel 15 Gm Of Glucse In 37.5 Gm Tube PO PRN PRN Hypoglycemia Protocol Hydrocortisone 1 applic 12/22/22 21:00 12/23/22 09:46 Hydrocortisone 1% 30 Gm Cream TOPICAL 1 applic Q12HR JOJO Administra
[2022-12-23 12:55] LABS: Glucose Point of Care 190 mg/dl (65-105)
[2022-12-23] MEDS: metroNIDAZOLE 250 MG TABLET 500 MG PO (13:49)
[2022-12-23 14:00] VITALS: BP 130/101; PULSE 86; RESP 20; TEMP 36.4; O2SAT 96
--- NOTE | 2022-12-23 15:10 | PCPTNOTE ---
attempted PT eval ~ 1400; pt was sound asleep, snoring; unable to arouse;
[2022-12-23 17:31] LABS: Glucose Point of Care 124 mg/dl (65-105)
[2022-12-23 20:18] VITALS: BP 126/57; PULSE 85; RESP 20; TEMP 36.7; O2SAT 96
[2022-12-23 20:26] LABS: Glucose Point of Care 110 mg/dl (65-105)
[2022-12-23] MEDS: DOXYCYCLINE HYCLATE 100 MG TABLET PO (20:55)
[2022-12-23] MEDS: SENNOSIDES 8.6 MG TABLET PO (20:55)
[2022-12-23] MEDS: AMOXICILLIN/CLAVULANATE K 875-125 MG TAB 1 TABLET PO (20:55)
[2022-12-23] MEDS: INSULIN GLARGINE (*BKC) 100 UNITS/ML 26 UNITS SUB-Q (20:59)
[2022-12-24 05:43] LABS: Basophils Absolute Auto 0.1 K/mm3 (0.0-0.1); Basophils Percent Auto 0.5 % (0.2-1.2); Eosinophils Absolute Auto 0.1 K/mm3 (0-0.3); Eosinophils Percent Auto 0.4 % (0-4.4); Hematocrit 35.8 % (42.0-52.0); Hemoglobin 12.1 g/dL (14.0-18.0); Immature Granulocyte Absolute 1.34 K/mm3 (0.00-0.031); Immature Granulocyte Percent A 6.8 % (0-0.5); Lymphocytes Absolute Auto 1.73 K/mm3 (0.9-3.2); Lymphocytes Percent Auto 8.8 % (18.3-44.2); Mean Corpuscular HGB Conc 33.8 g/dl (32-36); Mean Corpuscular Hemoglobin 32.4 pg (26-34); Mean Corpuscular Volume 95.7 fl (80-100); Mean Platelet Volume 9.5 fl (7.4-10.4); Monocytes Absolute Auto 1.3 K/mm3 (0.1-0.6); Monocytes Percent Auto 6.5 % (2.6-8.5); Neutrophils Absolute Auto 15.2 K/mm3 (1.3-6.7); Platelet Count Result 239 k/mm3 (150-375); Red Blood Count 3.74 M/mm3 (4.6-6.20); White Blood Count 19.7 K/mm3 (4.5-10.0)
[2022-12-24 06:00] VITALS: BP 142/66; PULSE 91; RESP 20; TEMP 36.6; O2SAT 94
[2022-12-24 06:03] LABS: Albumin Level 2.7 g/dL (3.5-5.1); Anion Gap 4 mmol/L (8-16); Blood Urea Nitrogen 18 mg/dL (9-20); Calcium 7.2 mg/dL (8.4-10.2); Carbon Dioxide 24 mmol/L (22-30); Chloride 100 mmol/L (98-107); Estimated CRCL calculation 110 ml/min; Estimated Glomerular Filt Rate > 60; Glucose 130 mg/dL (65-110); Phosphorus 3.9 mg/dL (2.5-4.5); Potassium 3.1 mmol/L (3.4-5.0); Sodium 128 mmol/L (137-145)
[2022-12-24 06:07] LABS: CRP 19.8 mg/dL (<1.0)
[2022-12-24 06:23] LABS: Procalcitonin 2.3 ng/mL
[2022-12-24 08:39] LABS: Glucose Point of Care 128 mg/dl (65-105)
[2022-12-24] MEDS: INSULIN ASPART (*BKC) 100 UNITS/ML 8 UNITS SUB-Q ×2 (09:05→13:07)
[2022-12-24] MEDS: ENOXAPARIN 40 MG/0.4 ML SYRINGE SUB-Q (09:08)
[2022-12-24] MEDS: HYDROCORTISONE 1% 30 GM CREAM 1 APPLIC TOPICAL (09:08)
[2022-12-24] MEDS: AMOXICILLIN/CLAVULANATE K 875-125 MG TAB 1 TABLET PO ×2 (09:09→20:09)
[2022-12-24] MEDS: DOXYCYCLINE HYCLATE 100 MG TABLET PO ×2 (09:09→20:09)
[2022-12-24 09:10] VITALS: O2SAT 94
--- NOTE | 2022-12-24 10:32 | P.PNNP_ITS ---
Progress Note: A&P Assessment and Plan (1) GERTRUDIS (acute kidney injury): Code(s): N17.9 - Acute kidney failure, unspecified Status: Acute Assessment and Plan: * GERTRUDIS * creatinine started to 2 point 5, peaked to 2.7, and now down to 1.2. * no recent labs to compare to but assumption is that is GERTRUDIS * suspect related to infection with possible progression to ATN * evaluation to date: * renal ultrasound without obstruction * urine electrolytes prerenal * urine eosinophils negative * CPK low * He is eating. * Off IV fluids. * Creatinine is back to normal. ? (2) Hyponatremia: Code(s): E87.1 - Hypo-osmolality and hyponatremia Status: Acute Assessment and Plan: * relatively stable . Value bouncing around in the high 120s. * suspect related to excessive free water intake along with GERTRUDIS * follow repeat sodium levels * Sodium is stable but still low. * The only suspicious medication that would cause low sodium would be his hydrocodone. He did not getting any of this yesterday though. * Chest x-ray normal. * No history of cancer. 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 * Will check a TSH and cortisol as well as serum plus urine osmolality.. 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 He is eager for discharge Eating breakfast now. Physical therapy working with him. He is reluctant to get up and around. He understands that he needs to do this. Therapy will come back in a few minutes. Exam Narrative: General: Large male with mild distress with any palpation/movement of RLE Heart: normal S1 and S2; no rub and no gallop Lungs: clear anteriorly, decreased at bases Abdomen: soft, nontender, nondistended, positive bowel sounds Extremities: 1+ edema and no cyanosis Skin: RLE with JASIEL-wraps in place Objective Data Vital Signs Vital Signs: Vital Signs - 24 hr 12/23/22 14:00 12/23/22 20:18 12/24/22 06:00 Temperature 97.6 F 98.1 F 97.8 F Pulse Rate 86 85 91 Respiratory Rate 20 20 20 Blood Pressure 130/101 H 126/57 L 142/66 H Pulse Oximetry 96 96 94 Intake/Output Intake/Output: Intake & Output 12/21/22 12/22/22 12/23/22 12/24/22 23:59 23:59 23:59 23:59 Intake Total 5278 4230 2940 120 Output Total 3750 1999 205 1250 Balance 1528 2230 890 -1130 Meds/Results Medications: Active Medications Generic Name Dose Route Start Last Admin Trade Name Freq PRN Reason Stop Dose Admin Acetaminophen 650 mg 12/19/22 10:07
--- NOTE | 2022-12-24 10:32 | PM.PNNEP ---
Progress Note: A&P Assessment and Plan (1) GERTRUDIS (acute kidney injury): Code(s): N17.9 - Acute kidney failure, unspecified Status: Acute Assessment and Plan: GERTRUDIS creatinine started to 2 point 5, peaked to 2.7, and now down to 1.2. no recent labs to compare to but assumption is that is GERTRUDIS suspect related to infection with possible progression to ATN evaluation to date: renal ultrasound without obstruction urine electrolytes prerenal urine eosinophils negative CPK low He is eating. Off IV fluids. Creatinine is back to normal. ? (2) Hyponatremia: Code(s): E87.1 - Hypo-osmolality and hyponatremia Status: Acute Assessment and Plan: relatively stable . Value bouncing around in the high 120s. suspect related to excessive free water intake along with GERTRUDIS follow repeat sodium levels Sodium is stable but still low. The only suspicious medication that would cause low sodium would be his hydrocodone. He did not getting any of this yesterday though. Chest x-ray normal. No history of cancer. 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 Will check a TSH and cortisol as well as serum plus urine osmolality.. 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 He is eager for discharge Eating breakfast now. Physical therapy working with him. He is reluctant to get up and around. He understands that he needs to do this. Therapy will come back in a few minutes. Exam Narrative: General: Large male with mild distress with any palpation/movement of RLE Heart: normal S1 and S2; no rub and no gallop Lungs: clear anteriorly, decreased at bases Abdomen: soft, nontender, nondistended, positive bowel sounds Extremities: 1+ edema and no cyanosis Skin: RLE with JASIEL-wraps in place Objective Data Vital Signs Vital Signs: Vital Signs - 24 hr 12/23/22 14:00 12/23/22 20:18 12/24/22 06:00 Temperature 97.6 F 98.1 F 97.8 F Pulse Rate 86 85 91 Respiratory Rate 20 20 20 Blood Pressure 130/101 H 126/57 L 142/66 H Pulse Oximetry 96 96 94 Intake/Output Intake/Output: Intake & Output 12/21/22 12/22/22 12/23/22 12/24/22 23:59 23:59 23:59 23:59 Intake Total 5278 4230 2940 120 Output Total 3750 2000 2050 1250 Balance 1528 2230 890 -1130 Meds/Results Medications: Active Medications Generic Name Dose Route Start Last Admin Trade Name Freq PRN Reason Stop Dose Admin Acetaminophen 650 mg 12/19/22 10:07 Acetaminophen 325 Mg Tablet PO Q6H PRN Pain 1-3 Hydrocodone Bitart/Acetaminophen 1 tab 12/19/22 10:11 12/22/22 12:55 Hydrocodone/Acetaminophen (*Crx) 7.5-325 Mg Tablet PO 1 tab Q6H PRN Administration Pain Rated 4-6 Albuterol 2.5 mg 12/22/22 14:20 Albuterol Sulfate Neb 2.5 Mg/3 Ml Inh INHALATION Q6HRT PRN Shortness Of Breath Amoxicillin/Clavulanate Potassium 1 tablet 12/23/22 21:00 12/24/22 09:09 Amoxicillin/Clavulanate K 875-125 Mg Tab PO 1 tablet Q12HR JOJO Administration Dextrose 12.5 gm 12/18/22 22:22 Dextrose 50% 25 Gm/50 Ml Syringe IV PUSH PRN PRN Hypoglycemia Protocol Doxycycline Hyclate 100 mg 12/23/22 21:00 12/24/22 09:09 Doxy
[2022-12-24] MEDS: POTASSIUM CHLORIDE 20 MEQ TABLET 40 MEQ PO (10:51)
--- NOTE | 2022-12-24 12:00 | PCOTNOTE ---
Attempted to see pt for Occupational Therapy treatment. Pt was sleeping soundly and was unable to keep eyes awake or continue conversation to participate in therapy session. Pt reports, She worked me really hard... when referring to PT session earlier today. Will continue per poc duration/frequency tomorrow.
[2022-12-24 12:41] LABS: Glucose Point of Care 142 mg/dl (65-105)
--- NOTE | 2022-12-24 13:35 | P.PNIM_ITS ---
Progress Note: A&P Assessment and Plan (1) Cellulitis of right lower extremity: Code(s): L03.115 - Cellulitis of right lower limb Status: Acute Assessment and Plan: Patient with significant left lower extremity cellulitis. * venous Doppler negative DVT * Treated with empiric antibiotics with vancomycin cefepime, Flagyl - increased cefepime to 2 grams Q12 hours, 12/21/22. * change to PO Augmentin 875/125 mg PO BID and Doxycycline 100 mg PO BID for MRSA, staph, strep and anaerobe coverage. * procalcitonin 14. Repeat 5.5 * blood cultures without growth to date * supportive care. Elevate RLE extremity above the heart and apply ines wrap for edema control. * analgesics as needed * WBC 24- 23- 25 today. CRP >45 x 48 hours to 37.8 and slightly improved 12/21. Continue current IV antibiotic therapy. * Consulted General surgery for further evaluation and no surgical needs at this time. * CT lower extremity without subcutaneous gas or focal fluid collection. * 12/23/22 WBC 24, however, CRP and procalcitonin downtrending and patient reports improvement in pain. Increased ROM also noted. * 12/24/22 WBC 19, CRP and procalcitonin continue to trend down. Continue oral augmentin and doxycycline. Elevate RLE. (2) Acute hyponatremia: Code(s): E87.1 - Hypo-osmolality and hyponatremia Status: Acute Assessment and Plan: sodium 124 declined to 122 this admission. * likely due to excess free water intake as patient reports drinking >1 gal of water per day * patient is receiving fluids at this type given acute kidney injury, see below * urine sodium is 8 and urine creatinine is 80.4, FENa 0.2% suggesting pre- renal. * monitor levels closely to ensure appropriate rate of correction * appreciate nephrology recommendations * sodium 128. He was counseled on drinking to thirst. TSH and cortisol normal range. Serum osmolality pending. (3) GERTRUDIS (acute kidney injury): Code(s): N17.9 - Acute kidney failure, unspecified Status: Acute Assessment and Plan: last labs available for review from 2018 with no evidence of kidney disease. Creatinine 2.5 on admission to 2.7 to 2.1 today * Per nephrology recommendations * renal ultrasound unremarkable * no evidence of urinary retention. Urine output is adequate. Urinary bladder noted to be moderately distended on renal ultrasound * continue to monitor intake and output * UA with 2+ protein * urine eosinophils negative * urine sodium is 8 and urine creatinine is 80.4, FENa 0.2% suggesting pre- renal.? * resolved (4) T2DM (type 2 diabetes mellitus): Qualifiers: Diabetes mellitus long-term insulin use: without long term care social worker use Diabetes mellitus complication status: with hyperglycemia Qualified Code(s): E11.65 - Type 2 diabetes mellitus with hyperglycemia Code(s): E11.9 - Type 2 diabetes mellitus without complications Status: Chronic Assessment and Plan: poorly controlled. Blood sugars have been running high since patient ran out of his glimepiride over 1 week ago. Blood sugars in the 210-229 today * continue Accu-Cheks, sliding scale insulin, and hypoglycemia protocol * tight glycemic control is important for wound healing. goal <180 mg/dL. * monitor glucose trends and adjust insulin regimen as needed * Consistent carb diet. * A1c 9%, uncontrolled. Last reported A1c 10.4% in 2018. He states it was 13% before COVID19 pandemic. * We discussed adding second agent to glimepiride. * 12/24/22 Glucose improved <140 mg/dL. Will resume glimepiride BID. Stop lantus and sliding scale insulin as the
--- NOTE | 2022-12-24 13:35 | PM.IMPN ---
Progress Note: A&P Assessment and Plan (1) Cellulitis of right lower extremity: Code(s): L03.115 - Cellulitis of right lower limb Status: Acute Assessment and Plan: Patient with significant left lower extremity cellulitis. venous Doppler negative DVT Treated with empiric antibiotics with vancomycin cefepime, Flagyl - increased cefepime to 2 grams Q12 hours, 12/21/22. change to PO Augmentin 875/125 mg PO BID and Doxycycline 100 mg PO BID for MRSA, staph, strep and anaerobe coverage. procalcitonin 14. Repeat 5.5 blood cultures without growth to date supportive care. Elevate RLE extremity above the heart and apply ines wrap for edema control. analgesics as needed WBC 24- 23- 25 today. CRP >45 x 48 hours to 37.8 and slightly improved 12/21. Continue current IV antibiotic therapy. Consulted General surgery for further evaluation and no surgical needs at this time. CT lower extremity without subcutaneous gas or focal fluid collection. 12/23/22 WBC 24, however, CRP and procalcitonin downtrending and patient reports improvement in pain. Increased ROM also noted. 12/24/22 WBC 19, CRP and procalcitonin continue to trend down. Continue oral augmentin and doxycycline. Elevate RLE. (2) Acute hyponatremia: Code(s): E87.1 - Hypo-osmolality and hyponatremia Status: Acute Assessment and Plan: sodium 124 declined to 122 this admission. likely due to excess free water intake as patient reports drinking >1 gal of water per day patient is receiving fluids at this type given acute kidney injury, see below urine sodium is 8 and urine creatinine is 80.4, FENa 0.2% suggesting pre-renal. monitor levels closely to ensure appropriate rate of correction appreciate nephrology recommendations sodium 128. He was counseled on drinking to thirst. TSH and cortisol normal range. Serum osmolality pending. (3) GERTRUDIS (acute kidney injury): Code(s): N17.9 - Acute kidney failure, unspecified Status: Acute Assessment and Plan: last labs available for review from 2018 with no evidence of kidney disease. Creatinine 2.5 on admission to 2.7 to 2.1 today Per nephrology recommendations renal ultrasound unremarkable no evidence of urinary retention. Urine output is adequate. Urinary bladder noted to be moderately distended on renal ultrasound continue to monitor intake and output UA with 2+ protein urine eosinophils negative urine sodium is 8 and urine creatinine is 80.4, FENa 0.2% suggesting pre-renal.? 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 Blood sugars have been running high since patient ran out of his glimepiride over 1 week ago. Blood sugars in the 210-229 today continue Accu-Cheks, sliding scale insulin, and hypoglycemia protocol tight glycemic control is important for wound healing. goal <180 mg/dL. monitor glucose trends and adjust insulin regimen as needed Consistent carb diet. A1c 9%, uncontrolled. Last reported A1c 10.4% in 2018. He states it was 13% before COVID19 pandemic. We discussed adding second agent to glimepiride. 12/24/22 Glucose improved <140 mg/dL. Will resume glimepiride BID. Stop lantus and sliding scale insulin as the patient does not want to take this at home. Monitor glucose levels. (5) Loud snoring: Code(s): R06.83 - Snoring Status: Acute Assessment and Plan: apnea monitor overnight for ELIZABETH screening ordered and patient refusing. (6) Constipation: Code(s): K59.00 - Constipation, unspecified Status: Acute Assessment and Plan: No BM s
[2022-12-24 14:39] LABS: Basophils Absolute Auto 0.1 K/mm3 (0.0-0.1); Basophils Percent Auto 0.5 % (0.2-1.2); Eosinophils Absolute Auto 0.1 K/mm3 (0-0.3); Eosinophils Percent Auto 0.6 % (0-4.4); Hematocrit 37.2 % (42.0-52.0); Hemoglobin 12.2 g/dL (14.0-18.0); Immature Granulocyte Absolute 0.95 K/mm3 (0.00-0.031); Immature Granulocyte Percent A 5.6 % (0-0.5); Lymphocytes Absolute Auto 1.62 K/mm3 (0.9-3.2); Lymphocytes Percent Auto 9.6 % (18.3-44.2); Mean Corpuscular HGB Conc 32.8 g/dl (32-36); Mean Corpuscular Hemoglobin 32.6 pg (26-34); Mean Corpuscular Volume 99.5 fl (80-100); Mean Platelet Volume 10.1 fl (7.4-10.4); Monocytes Percent Auto 5.9 % (2.6-8.5); Neutrophils Absolute Auto 13.1 K/mm3 (1.3-6.7); Neutrophils Percent Auto 77.8 % (45.5-73.1); Nucleated Red Blood Cells Perc 0.1 % (0.0-0.2); Platelet Count Result 253 k/mm3 (150-375); Red Blood Count 3.74 M/mm3 (4.6-6.20); Red Cell Distribution Width 14.3 % (11.5-14.5); White Blood Count 16.9 K/mm3 (4.5-10.0)
[2022-12-24 15:00] VITALS: BP 129/64; PULSE 86; RESP 17; TEMP 36.9; O2SAT 98
[2022-12-24 15:44] LABS: Lambda Light Chain 104.2 mg/L (5.7-26.3)
[2022-12-24 17:10] LABS: Glucose Point of Care 136 mg/dl (65-105)
[2022-12-24] MEDS: GLIMEPIRIDE 2 MG TABLET 4 MG PO (17:56)
[2022-12-24 20:00] VITALS: PULSE 86; RESP 17; O2SAT 98
[2022-12-24] MEDS: SENNOSIDES 8.6 MG TABLET PO (20:09)
[2022-12-24 21:13] LABS: Glucose Point of Care 156 mg/dl (65-105)
[2022-12-24 21:55] VITALS: BP 122/60; PULSE 88; RESP 24; TEMP 36.6; O2SAT 95
[2022-12-24 22:32] LABS: Vancomycin Trough 6.8 ug/mL (10.0-20.0)
[2022-12-25 06:00] VITALS: BP 124/60; PULSE 84; RESP 24; TEMP 36.6; O2SAT 95
--- NOTE | 2022-12-25 07:14 | PM.DS ---
DS: Admitting Diagnosis Discharge Date 12/25/2022 1620 Admitting Diagnosis Cellulitis of right lower extremity Tobacco dependence Morbid obesity with BMI of 45.0-49.9, adult Type 2 diabetes mellitus without complications Acute kidney failure, unspecified DS: Discharge Diagnosis Discharge Diagnosis (1) Cellulitis of right lower extremity: Code(s): L03.115 - Cellulitis of right lower limb Status: Acute (2) GERTRUDIS (acute kidney injury): Code(s): N17.9 - Acute kidney failure, unspecified Status: Acute (3) Acute hyponatremia: Code(s): E87.1 - Hypo-osmolality and hyponatremia Status: Acute (4) T2DM (type 2 diabetes mellitus): Qualifiers: Diabetes mellitus senior care insulin use: without exterminator helper termite use Diabetes mellitus complication status: with hyperglycemia Qualified Code(s): E11.65 - Type 2 diabetes mellitus with hyperglycemia Code(s): E11.9 - Type 2 diabetes mellitus without complications Status: Chronic (5) Morbid obesity with BMI of 45.0-49.9, adult: Code(s): E66.01 - Morbid (severe) obesity due to excess calories; Z68.42 - Body mass index [BMI] 45.0-49.9, adult Status: Chronic (6) Loud snoring: Code(s): R06.83 - Snoring Status: Acute (7) Constipation: Code(s): K59.00 - Constipation, unspecified Status: Acute (8) Tobacco dependence: Code(s): F17.200 - Nicotine dependence, unspecified, uncomplicated Status: Acute (9) Venous insufficiency: Code(s): I87.2 - Venous insufficiency (chronic) (peripheral) Status: Acute DS: Summary Hospital Course Reason for hospitalization: Right leg pain and swelling Hospital Course: Patient is a 42-year-old male with uncontrolled type 2 diabetes mellitus who is seen in follow-up for an cellulitis of the right lower extremity.? He was admitted for further management of RLE cellulitis. (1) Cellulitis of right lower extremity (2) Venous insufficiency Patient with significant left? lower extremity cellulitis. ?venous Doppler negative DVT, doppler with reflux shows ?Reflux in right greater and lesser saphenous veins. ?12/18/22 empiric antibiotics with vancomycin cefepime, Flagyl - increased cefepime to 2 grams Q12 hours, 12/20/22 and IV antibiotics continued until 12/23/22. changed to PO Augmentin 875/125 mg PO BID and Doxycycline 100 mg PO BID for MRSA, staph, strep and anaerobe coverage, continue for 8 more days at discharge for total 14-day antibiotic course. ?procalcitonin 14 on 12/20/22 and trending down at discharge. ?blood cultures without growth ?supportive care- Elevate RLE extremity above the heart and apply ines wrap for edema control. ?analgesics as needed PO ?WBC and CRP significantly elevated, 25 and >45 respectively on admission. Improved with antibiotic therapy. Consulted General surgery for further evaluation and no surgical needs at this time. General surgery recommended silvadene ointment twice daily to blistered/macerated skin to prevent secondary infection. Nursing instructed to give education and demonstration of dressing changes. CT lower extremity without subcutaneous gas or focal fluid collection. ABIs obtained and borderline 0.95 to left. right extremity could not accurately be obtained due to cellulitis, but should be repeated when blistering improved so that Unna boot can be applied for edema control. Patient to follow up with PCP at [facility]. Given lasix 40 mg IV x1, diuretics judiciously due to hyponatremia. Wound RN consulted for evaluation prior to discharge. (3) Acute hyponatremia ?sodium 124 declined to 122 this admission. Maintained high 120s and asymptomatic. ?likely due to excess free water intake as patient reports drinking >1 gal of water per day ?patient is receiving fluids at this type given acute kidney injury, see below ?urine sodium is 8 and urine creatinine is 80.4, FENa 0.2% suggesting pre-renal. Likely from cellulitis
[2022-12-25 08:34] LABS: Albumin Level 2.6 g/dL (3.5-5.1); Anion Gap 5 mmol/L (8-16); Blood Urea Nitrogen 15 mg/dL (9-20); Calcium 7.1 mg/dL (8.4-10.2); Carbon Dioxide 25 mmol/L (22-30); Chloride 105 mmol/L (98-107); Estimated CRCL calculation 130 ml/min; Estimated Glomerular Filt Rate > 60; Glucose 115 mg/dL (65-110); Phosphorus 4.1 mg/dL (2.5-4.5); Potassium 3.5 mmol/L (3.4-5.0); Sodium 135 mmol/L (137-145)
[2022-12-25 08:40] LABS: Glucose Point of Care 109 mg/dl (65-105)
[2022-12-25] MEDS: ENOXAPARIN 40 MG/0.4 ML SYRINGE SUB-Q (08:59)
[2022-12-25 09:00] VITALS: O2SAT 94
[2022-12-25] MEDS: AMOXICILLIN/CLAVULANATE K 875-125 MG TAB 1 TABLET PO (09:00)
[2022-12-25] MEDS: DOXYCYCLINE HYCLATE 100 MG TABLET PO (09:00)
[2022-12-25] MEDS: EMPAGLIFLOZIN 10 MG TABLET PO (09:00)
--- NOTE | 2022-12-25 09:11 | P.PNNP_ITS ---
Progress Note: A&P Assessment and Plan (1) GERTRUDIS (acute kidney injury): Code(s): N17.9 - Acute kidney failure, unspecified Status: Acute Assessment and Plan: * improving (if not resolved) * creatinine started to 2.5, peaked to 2.7, and now down to 1.0 * no recent labs to compare to but assumption is that is GERTRUDIS * suspect related to infection with possible progression to ATN * evaluation to date: * renal ultrasound without obstruction * urine electrolytes prerenal * urine eosinophils negative * CPK low * continue supportive therapy ? (2) Hyponatremia: Code(s): E87.1 - Hypo-osmolality and hyponatremia Status: Acute Assessment and Plan: * relatively stable if not better today * suspect related to excessive free water intake ( about a gallon a day ) along with GERTRUDIS * the only suspicious medication that would cause low sodium would be his hydrocodone. * chest x-ray normal * no history of cancer * no REAL ESTATE SUBAGENT symptoms or signs * continue to follow (3) Cellulitis of right lower extremity: Code(s): L03.115 - Cellulitis of right lower limb Status: Acute Assessment and Plan: * as noted on presentation * IV antibiotics * follow culture data * local wound care * Surgery following -- CT of RLE results notes (4) T2DM (type 2 diabetes mellitus): Qualifiers: Diabetes mellitus complication status: with hyperglycemia Diabetes mellitus fpc insulin use: without pilot supervisor use Qualified Code(s): E11.65 - Type 2 diabetes mellitus with hyperglycemia Code(s): E11.9 - Type 2 diabetes mellitus without complications Status: Chronic Assessment and Plan: * follow accuchecks * glycemic control per hospitalists Not much else to really add -- will continue to follow intermittently. Subjective Date/time seen: 12/25/22 09:11 Chart reviewed since last seen -- renal function has normalized and sodium continues to improve; pain control seems adequate with current interventions; no apparent distress voiced at this time. Exam Narrative: General: Large male in NAD Heart: normal S1 and S2 Lungs: clear anteriorly, decreased at bases Abdomen: soft, nontender, nondistended, positive bowel sounds Extremities: trace - 1+ edema and no cyanosis Skin: RLE with JASIEL-wraps in place Objective Data Vital Signs Vital Signs: Vital Signs Temp Pulse Resp BP Pulse Ox O2 Del Method 12/25/22 06:00 97.9 F 84 24 H 124/60 95 12/24/22 21:55 97.9 F 88 24 H 122/60 95 12/24/22 20:00 86 17 98 Room Air 12/24/22 15:00 98.5 F 86 17 129/64 98 Intake/Output Intake/Output: Intake & Output 12/22/22 12/23/22 12/24/22 12/25/22 23:59 23:59 23:59 23:59 Intake Total 4230 2940 1820 790 Output Total 1999 2049 2049 1550 Balance 2230 [phone] Meds/Results Medications: Active Medications Generic Name Dose Route Start Last Admin Trade Name Freq PRN Reason Stop Dose Admin Acetaminophen 650 mg 12/19/22 10:07 Acetaminophen 325 Mg Tablet PO Q6H PRN Pain 1-3 Hydrocodone Bitart/Acetaminophen 1 tab 12/19/22 10:11 12/22/22 12:55 Hydrocodone/Acetaminophen (*Crx) 7.5-325 M
--- NOTE | 2022-12-25 09:11 | PM.PNNEP ---
Progress Note: A&P Assessment and Plan (1) GERTRUDIS (acute kidney injury): Code(s): N17.9 - Acute kidney failure, unspecified Status: Acute Assessment and Plan: improving (if not resolved) creatinine started to 2.5, peaked to 2.7, and now down to 1.0 no recent labs to compare to but assumption is that is GERTRUDIS suspect related to infection with possible progression to ATN evaluation to date: renal ultrasound without obstruction urine electrolytes prerenal urine eosinophils negative CPK low continue supportive therapy ? (2) Hyponatremia: Code(s): E87.1 - Hypo-osmolality and hyponatremia Status: Acute Assessment and Plan: relatively stable if not better today suspect related to excessive free water intake ( about a gallon a day ) along with GERTRUDIS the only suspicious medication that would cause low sodium would be his hydrocodone. chest x-ray normal no history of cancer no ELECTRICAL TECH/PROJECT MANAGER symptoms or signs continue to follow (3) Cellulitis of right lower extremity: Code(s): L03.115 - Cellulitis of right lower limb Status: Acute Assessment and Plan: as noted on presentation IV antibiotics follow culture data local wound care Surgery following -- CT of RLE results notes (4) T2DM (type 2 diabetes mellitus): Qualifiers: Diabetes mellitus complication status: with hyperglycemia Diabetes mellitus exterminator helper insulin use: without senior care use Qualified Code(s): E11.65 - Type 2 diabetes mellitus with hyperglycemia Code(s): E11.9 - Type 2 diabetes mellitus without complications Status: Chronic Assessment and Plan: follow accuchecks glycemic control per hospitalists Not much else to really add -- will continue to follow intermittently. Subjective Date/time seen: 12/25/22 09:11 Chart reviewed since last seen -- renal function has normalized and sodium continues to improve; pain control seems adequate with current interventions; no apparent distress voiced at this time. Exam Narrative: General: Large male in NAD Heart: normal S1 and S2 Lungs: clear anteriorly, decreased at bases Abdomen: soft, nontender, nondistended, positive bowel sounds Extremities: trace - 1+ edema and no cyanosis Skin: RLE with JASIEL-wraps in place Objective Data Vital Signs Vital Signs: Vital Signs Temp Pulse Resp BP Pulse Ox O2 Del Method 12/25/22 06:00 97.9 F 84 24 H 124/60 95 12/24/22 21:55 97.9 F 88 24 H 122/60 95 12/24/22 20:00 86 17 98 Room Air 12/24/22 15:00 98.5 F 86 17 129/64 98 Intake/Output Intake/Output: Intake & Output 12/22/22 12/23/22 12/24/22 12/25/22 23:59 23:59 23:59 23:59 Intake Total 423 2940 1820 790 Output Total 1999 2049 2049 1550 Balance 2230 [phone] Meds/Results Medications: Active Medications Generic Name Dose Route Start Last Admin Trade Name Freq PRN Reason Stop Dose Admin Acetaminophen 650 mg 12/19/22 10:07 Acetaminophen 325 Mg Tablet PO Q6H PRN Pain 1-3 Hydrocodone Bitart/Acetaminophen 1 tab 12/19/22 10:11 12/22/22 12:55 Hydrocodone/Acetaminophen (*Crx) 7.5-325 Mg Tablet PO 1 tab Q6H PRN Administration Pain Rated 4-6 Albuterol 2.5 mg 12/22/22 14:20 Albuterol Sulfate Neb 2.5 Mg/3 Ml Inh INHALATION Q6HRT PRN Shortness Of Breath Amoxicillin/Clavulanate Potassium 1 tablet 12/23/22 21:00 12/25/22 09:00 Amoxicillin/Clavulanate K 875-125 Mg Tab PO 1 tablet Q12HR JOJO Administration Dextrose 12.5 gm 12/18/22 22:22 Dextrose 50% 25 Gm/50 Ml Syringe IV PUSH PRN PRN Hypoglycemia Protocol Doxycycline Hyclate 100 mg 12/23/22 21:00 12/25/22 09:00 Doxycycline Hyclate 100 Mg Tablet PO 100 mg Q12HR JOJO Administration Empagliflozin 10 mg 12/25/22 09:00 12/25/22 09:00 Empagliflozin 10 Mg Tablet PO 10 mg DAILY JOJO Administration Enoxaparin Sodium 40 mg 02
[2022-12-25] MEDS: GLIMEPIRIDE 2 MG TABLET 4 MG PO ×2 (09:38→17:01)
[2022-12-25] MEDS: ALBUTEROL SULFATE NEB 2.5 MG/3 ML INH INHALATION (10:05)
[2022-12-25 10:06] VITALS: PULSE 90; RESP 18
[2022-12-25 10:14] VITALS: RESP 18
[2022-12-25 12:32] LABS: Glucose Point of Care 130 mg/dl (65-105)
[2022-12-25] MEDS: POTASSIUM CHLORIDE 20 MEQ TABLET 40 MEQ PO (13:08)
[2022-12-25] MEDS: FUROSEMIDE INJ 40 MG/4 ML VIAL IV PUSH (13:08)
--- NOTE | 2022-12-25 13:19 | PCOTNOTE ---
Attempted to see patient twice this date. First attempt, patient was with physical therapy. Second attempt, patient was unavailable with nursing.
[2022-12-25 14:00] VITALS: BP 162/87; PULSE 92; RESP 24; TEMP 36.6; O2SAT 100
[2022-12-25 15:40] LABS: Albumin 2.2 g/dL (3.8-4.8); Alpha 1 Globulin 0.8 g/dL (0.2-0.3); Alpha 2 Globulin 0.8 g/dL (0.5-0.9); Beta 1 Globulin 0.4 g/dL (0.4-0.6); Gamma Globulin 1.3 g/dL (0.8-1.7); Protein, Total 6.1 g/dL (6.1-8.1)
[2022-12-25 17:21] LABS: Glucose Point of Care 121 mg/dl (65-105)
[2022-12-26 12:24] LABS: Anti Glomerular Basement Memb <1.0 AI (<1.0)
[2022-12-26 22:02] LABS: ANCA Screen Negative (Negative)
[2022-12-27 20:30] LABS: Osmolality, Urine 350 mOsm/kg (50-1200)
== END 2022-12-25 18:30 | disposition home or self-care (01) | DRG 638 ==
LOC: ANHED 21:02 → ANH3MED 23:00
PROVIDERS: Internal Medicine Nephrology; Physician Assistant; Admitting Provider Internal Medicine; Emergency Provider Emergency Medicine; Visit Provider Nurse Practitioner Family
DX: E11.628 Type 2 diabetes mellitus with other skin complications (principal); E87.1 Hypo-osmolality and hyponatremia; L03.115 Cellulitis of right lower limb; Z68.42 Body mass index [BMI] 45.0-49.9, adult; E11.65 Type 2 diabetes mellitus with hyperglycemia; K59.00 Constipation, unspecified; E66.01 Morbid (severe) obesity due to excess calories; F17.210 Nicotine dependence, cigarettes, uncomplicated; N17.0 Acute kidney failure with tubular necrosis; Z20.822 Contact with and (suspected) exposure to COVID-19; Z88.6 Allergy status to analgesic agent; Z80.0 Family history of malignant neoplasm of digestive organs
CPT/HCPCS: 36415; 36600; 71045; 73700; 76775; 80048; 80053; 80069; 80202; 81001; 81050; 82010; 82375; 82533; 82550; 82570; 82803; 82805; 82948; 83036; 83050; 83520; 83605; 83735; 83883; 83930; 83935; 84100; 84145; 84155; 84156; 84165; 84295; 84300; 84443; 85025; 85652; 85999; 86036; 86038; 86140; 86160; 86225; 87040; 87086; 87637; 93922; 93971; 94640; 96361; 96365; 96366; 96367; 96372; 96374; 96375; 97110; 97161; 97165; 97530; 99285; A9270; G0378; J0692; J1650; J1815; J1940; J2270; J2405; J3370; J7030; J7040